=== PATIENT | male | born 1950 | race African-American/Black ===

== ENCOUNTER 2021-11-25 14:39 | Inpatient (IN) | payer MEDICARE ==
[2021-11-25 15:30] LABS: #Eosinphils 0.1 10x3/uL (0.0-0.5); #Monocytes 0.5 10x3/uL (0.0-1.1); #Neutrophils 5.5 10x3/uL (1.5-8.4); %Basophils 0.3 % (0.0-2.0); %Eosinophils 0.9 % (0.0-6.0); %Lymphocytes 7.3 % (18.0-47.0); %Monocytes 7.3 % (0.0-10.0); %Neutrophils 83.9 % (40.0-75.0); Hemoglobin 10.4 g/dL (13.5-17.5); Mean Corpuscular HGB CONC 32.8 g/dL (32.0-36.0); Mean Corpuscular Hemoglobin 29.1 pg (27.0-33.0); Mean Corpuscular Volume 88.8 fl (81.2-95.1); Mean Platelet Volume 10.1 fl (7.4-10.4); Platelet Count 229 10x3/uL (150-450); RBC Distribution Width 17.8 % (11.5-14.5); Red Blood Cell (RBC) Count 3.57 10x6/uL (4.32-5.72); White Blood Cell (WBC) Count 6.6 10x3/uL (3.5-10.5)
[2021-11-25 15:42] LABS: ALT (SGPT) 15 U/L (8-55); AST (SGOT) 22 U/L (5-34); Albumin 3.3 g/dL (3.4-4.8); Alkaline Phosphatase 224 U/L (40-110); Anion Gap 14 mmol/L (10-20); BUN (Urea Nitrogen) 15 mg/dL (8.4-25.7); Bilirubin, Total 2.4 mg/dL (0.2-1.2); CK (CPK) 283 U/L (30-200); Calc. Creatinine Clearance 0 mL/min (70-130); Calcium 8.7 mg/dL (7.8-10.44); Carbon Dioxide 25 mmol/L (23-31); Chloride 102 mmol/L (98-107); Globulin 3.3 g/dL (2.4-3.5); Glucose 174 mg/dL (83-110); Potassium 3.1 mmol/L (3.5-5.1); Protein, Total 6.6 g/dL (5.8-8.1); Sodium 138 mmol/L (136-145)
[2021-11-25] MEDS ORDERED: Cefepime 2 GM VIAL ONE (17:04)
[2021-11-25 17:13] LABS: SARS-CoV-2 NAA Rapid Test Not Detected (NotDetected)
[2021-11-25] MEDS ORDERED: Vancomycin 1.5 GRAM/300 ML BAG 1.5 GM in Premix Bag 1 BAG IVPB SCH (17:15)
[2021-11-25] MEDS ORDERED: Acetaminophen 650 MG Suppository PR PRN (17:41)
[2021-11-25] MEDS ORDERED: Ondansetron ODT 4 MG TAB PO PRN (17:41)
[2021-11-25] MEDS ORDERED: Ondansetron PF 4 MG/2 ML Vial IVP PRN (17:41)
[2021-11-25] MEDS ORDERED: Acetaminophen 325 MG TAB PO PRN (17:41)
[2021-11-25 18:24] LABS: Lactic Acid 1.6 mmol/L (0.5-2.2)
[2021-11-25 18:42] LABS: Cardiac Risk 2.6 (Less than 4.5); Cholesterol 131 mg/dl (< 200 Desired); HDL Cholesterol 51 mg/dL (>60 Neg Risk); LDL Cholesterol, Calculated 66 mg/dL; Magnesium 2.1 mg/dL (1.6-2.6); Triglycerides 70 mg/dL (Less than 150)
[2021-11-25 19:07] LABS: CKMB 2.9 ng/mL (0-6.6)
[2021-11-25] MEDS ORDERED: Promethazine HCl 25 MG/ML VIAL ONE (23:02)
[2021-11-25] MEDS ORDERED: Ketorolac Tromethamine 30 MG/ML VIAL ONE (23:02)
[2021-11-26 00:48] VITALS: BMI 23.6
[2021-11-26] MEDS ORDERED: Potassium Chloride 20 MEQ TAB PO SCH (01:00)
[2021-11-26] MEDS: Sodium Chloride 0.9% 1,000 ML IV SCH ×2 (01:17→09:12)
[2021-11-26 05:31] LABS: #Eosinphils 0.1 10x3/uL (0.0-0.5); #Monocytes 0.6 10x3/uL (0.0-1.1); #Neutrophils 4.8 10x3/uL (1.5-8.4); %Basophils 0.5 % (0.0-2.0); %Eosinophils 1.2 % (0.0-6.0); %Lymphocytes 8.2 % (18.0-47.0); %Monocytes 9.3 % (0.0-10.0); %Neutrophils 80.5 % (40.0-75.0); Hemoglobin 10.5 g/dL (13.5-17.5); Mean Corpuscular HGB CONC 33.8 g/dL (32.0-36.0); Mean Corpuscular Hemoglobin 29.7 pg (27.0-33.0); Mean Corpuscular Volume 87.9 fl (81.2-95.1); Platelet Count 198 10x3/uL (150-450); RBC Distribution Width 17.9 % (11.5-14.5); Red Blood Cell (RBC) Count 3.54 10x6/uL (4.32-5.72)
[2021-11-26 05:49] LABS: ALT (SGPT) 13 U/L (8-55); AST (SGOT) 19 U/L (5-34); Alkaline Phosphatase 195 U/L (40-110); Anion Gap 13 mmol/L (10-20); BUN (Urea Nitrogen) 14 mg/dL (8.4-25.7); Calc. Creatinine Clearance 50 mL/min (70-130); Calcium 8.6 mg/dL (7.8-10.44); Carbon Dioxide 23 mmol/L (23-31); Chloride 104 mmol/L (98-107); Globulin 3.2 g/dL (2.4-3.5); Glucose 159 mg/dL (83-110); Protein, Total 6.2 g/dL (5.8-8.1); Sodium 137 mmol/L (136-145)
[2021-11-26] MEDS: Heparin 5,000 UNITS/ML VIAL SC SCH ×2 (09:13→20:19)
[2021-11-26 13:14] LABS: Hemoglobin A1c 6.7 % (4.0-6.0)
[2021-11-26] MEDS: Potassium Chloride 20 MEQ TAB PO SCH (18:07)
[2021-11-26] MEDS ORDERED: Electrolyte Replacement Protocol 1 EACH FS SCH (19:15)
[2021-11-26] MEDS: Atorvastatin Calcium 40 MG TAB PO SCH (20:19)
[2021-11-27 04:33] LABS: #Eosinphils 0.1 10x3/uL (0.0-0.5); #Monocytes 0.7 10x3/uL (0.0-1.1); %Basophils 0.6 % (0.0-2.0); %Eosinophils 0.8 % (0.0-6.0); %Lymphocytes 10.2 % (18.0-47.0); %Monocytes 10.3 % (0.0-10.0); %Neutrophils 77.5 % (40.0-75.0); Hemoglobin 10.3 g/dL (13.5-17.5); Mean Corpuscular Hemoglobin 29.5 pg (27.0-33.0); Mean Corpuscular Volume 86.8 fl (81.2-95.1); Mean Platelet Volume 10.2 fl (7.4-10.4); Platelet Count 205 10x3/uL (150-450); RBC Distribution Width 17.6 % (11.5-14.5); Red Blood Cell (RBC) Count 3.49 10x6/uL (4.32-5.72); White Blood Cell (WBC) Count 6.5 10x3/uL (3.5-10.5)
[2021-11-27 04:41] LABS: Phosphorus 2.6 mg/dL (2.3-4.7)
[2021-11-27 05:34] LABS: ALT (SGPT) 17 U/L (8-55); AST (SGOT) 26 U/L (5-34); Alkaline Phosphatase 214 U/L (40-110); Anion Gap 15 mmol/L (10-20); BUN (Urea Nitrogen) 14 mg/dL (8.4-25.7); Bilirubin, Total 2.8 mg/dL (0.2-1.2); Calc. Creatinine Clearance 49 mL/min (70-130); Calcium 8.3 mg/dL (7.8-10.44); Carbon Dioxide 21 mmol/L (23-31); Chloride 103 mmol/L (98-107); Globulin 3.1 g/dL (2.4-3.5); Glucose 162 mg/dL (83-110); Magnesium 2.1 mg/dL (1.6-2.6); Potassium 3.6 mmol/L (3.5-5.1); Protein, Total 6.1 g/dL (5.8-8.1); Sodium 135 mmol/L (136-145)
[2021-11-27] MEDS: Clopidogrel Bisulfate 75 MG TAB PO SCH (08:56)
[2021-11-27] MEDS: Potassium Chloride 20 MEQ TAB PO SCH (08:56)
[2021-11-27] MEDS: Heparin 5,000 UNITS/ML VIAL SC SCH ×2 (08:56→20:20)
[2021-11-27] MEDS: Aspirin 81 mg Enteric Coated Tablet PO SCH (08:57)
[2021-11-27] MEDS ORDERED: Lisinopril 2.5 MG TAB PO SCH (13:00)
[2021-11-27] MEDS ORDERED: Furosemide 40 MG/4 ML VIAL SLOW IVP SCH (13:00)
[2021-11-27] MEDS ORDERED: Carvedilol 6.25 MG TAB PO SCH (13:00)
[2021-11-27] MEDS: Carvedilol 6.25 MG TAB PO SCH (16:10)
[2021-11-27] MEDS: hydrALAZINE 25 MG TAB PO SCH ×2 (16:11→20:20)
[2021-11-27 19:11] LABS: Bilirubin Neg (Negative); Blood, Urine 10 (Negative); Clarity Slightly Cloudy (Clear); Glucose, Urine (Dipstick) Normal (Negative); Ketone, Urine Negative (Negative); Leukocyte 500 (Negative); Nitrite Negative (Negative); Protein, Urine (Dipstick) 30 mg/dl (Neg-Trace); Urobilinogen Normal mg/dL (Less than 2); pH, Urine 6.5 (5.0-9.0)
[2021-11-27 19:22] LABS: WBC/HPF Greater Than 50 HPF (0-3)
[2021-11-27 19:23] LABS: Bacteria/HPF 2+ HPF (None Seen); Mucous/LPF 1+ LPF (<2+)
[2021-11-27] MEDS: Atorvastatin Calcium 40 MG TAB PO SCH (20:20)
[2021-11-28 04:10] LABS: #Eosinphils 0.1 10x3/uL (0.0-0.5); #Monocytes 0.4 10x3/uL (0.0-1.1); #Neutrophils 3.7 10x3/uL (1.5-8.4); %Basophils 0.8 % (0.0-2.0); %Eosinophils 2.3 % (0.0-6.0); %Monocytes 8.1 % (0.0-10.0); %Neutrophils 76.4 % (40.0-75.0); Hemoglobin 9.9 g/dL (13.5-17.5); Mean Corpuscular HGB CONC 34.1 g/dL (32.0-36.0); Mean Corpuscular Hemoglobin 29.5 pg (27.0-33.0); Mean Corpuscular Volume 86.3 fl (81.2-95.1); Mean Platelet Volume 9.8 fl (7.4-10.4); Platelet Count 183 10x3/uL (150-450); RBC Distribution Width 17.7 % (11.5-14.5); Red Blood Cell (RBC) Count 3.36 10x6/uL (4.32-5.72); White Blood Cell (WBC) Count 4.8 10x3/uL (3.5-10.5)
[2021-11-28 04:34] LABS: ALT (SGPT) 13 U/L (8-55); AST (SGOT) 16 U/L (5-34); Albumin 2.7 g/dL (3.4-4.8); Alkaline Phosphatase 234 U/L (40-110); Anion Gap 13 mmol/L (10-20); BUN (Urea Nitrogen) 16 mg/dL (8.4-25.7); Bilirubin, Direct 1.9 mg/dL (0.1-0.3); Bilirubin, Total 2.7 mg/dL (0.2-1.2); Bilirubin, Total 2.8 mg/dL (0.2-1.2); Calc. Creatinine Clearance 50 mL/min (70-130); Calcium 8.1 mg/dL (7.8-10.44); Carbon Dioxide 22 mmol/L (23-31); Chloride 103 mmol/L (98-107); Globulin 2.9 g/dL (2.4-3.5); Glucose 138 mg/dL (83-110); Potassium 3.7 mmol/L (3.5-5.1); Protein, Total 5.6 g/dL (5.8-8.1); Sodium 134 mmol/L (136-145)
[2021-11-28] MEDS: Furosemide 40 MG/4 ML VIAL SLOW IVP SCH ×2 (06:43→14:33)
[2021-11-28] MEDS: Aspirin 81 mg Enteric Coated Tablet PO SCH (08:52)
[2021-11-28] MEDS: Clopidogrel Bisulfate 75 MG TAB PO SCH (08:52)
[2021-11-28] MEDS: Carvedilol 6.25 MG TAB PO SCH ×2 (08:52→17:05)
[2021-11-28] MEDS: Heparin 5,000 UNITS/ML VIAL SC SCH ×2 (08:53→21:30)
[2021-11-28] MEDS: hydrALAZINE 25 MG TAB PO SCH ×3 (08:53→21:29)
[2021-11-28] MEDS ORDERED: Lisinopril 2.5 MG TAB PO SCH (09:00)
[2021-11-28] MEDS: Atorvastatin Calcium 40 MG TAB PO SCH (21:30)
[2021-11-29 04:05] LABS: #Eosinphils 0.1 10x3/uL (0.0-0.5); #Monocytes 0.4 10x3/uL (0.0-1.1); #Neutrophils 3.6 10x3/uL (1.5-8.4); %Basophils 0.6 % (0.0-2.0); %Eosinophils 2.5 % (0.0-6.0); %Lymphocytes 12.5 % (18.0-47.0); %Monocytes 7.6 % (0.0-10.0); %Neutrophils 76.6 % (40.0-75.0); Hemoglobin 9.8 g/dL (13.5-17.5); Mean Corpuscular HGB CONC 33.8 g/dL (32.0-36.0); Mean Corpuscular Hemoglobin 29.4 pg (27.0-33.0); Mean Corpuscular Volume 87.1 fl (81.2-95.1); Mean Platelet Volume 10.4 fl (7.4-10.4); Platelet Count 177 10x3/uL (150-450); RBC Distribution Width 17.6 % (11.5-14.5); Red Blood Cell (RBC) Count 3.33 10x6/uL (4.32-5.72); White Blood Cell (WBC) Count 4.7 10x3/uL (3.5-10.5)
[2021-11-29 04:35] LABS: ALT (SGPT) 12 U/L (8-55); AST (SGOT) 14 U/L (5-34); Albumin 2.7 g/dL (3.4-4.8); Alkaline Phosphatase 232 U/L (40-110); Anion Gap 12 mmol/L (10-20); BUN (Urea Nitrogen) 16 mg/dL (8.4-25.7); Bilirubin, Total 1.9 mg/dL (0.2-1.2); Calc. Creatinine Clearance 47 mL/min (70-130); Calcium 8.2 mg/dL (7.8-10.44); Carbon Dioxide 23 mmol/L (23-31); Chloride 101 mmol/L (98-107); Globulin 3.1 g/dL (2.4-3.5); Glucose 149 mg/dL (83-110); Potassium 3.2 mmol/L (3.5-5.1); Protein, Total 5.8 g/dL (5.8-8.1); Sodium 133 mmol/L (136-145)
[2021-11-29] MEDS ORDERED: Potassium Chloride 20 MEQ TAB PO SCH (04:45)
[2021-11-29] MEDS: Furosemide 40 MG/4 ML VIAL SLOW IVP SCH ×2 (07:42→15:49)
[2021-11-29] MEDS: Aspirin 81 mg Enteric Coated Tablet PO SCH (11:08)
[2021-11-29] MEDS: Lisinopril 5 MG TAB PO SCH (11:09)
[2021-11-29] MEDS: Heparin 5,000 UNITS/ML VIAL SC SCH ×2 (11:09→22:12)
[2021-11-29] MEDS: hydrALAZINE 25 MG TAB PO SCH ×3 (11:09→22:11)
[2021-11-29] MEDS: Clopidogrel Bisulfate 75 MG TAB PO SCH (11:09)
[2021-11-29] MEDS: Carvedilol 6.25 MG TAB PO SCH ×2 (16:03→18:15)
[2021-11-29] MEDS: Atorvastatin Calcium 40 MG TAB PO SCH (22:12)
[2021-11-30 05:16] LABS: #Eosinphils 0.1 10x3/uL (0.0-0.5); #Monocytes 0.4 10x3/uL (0.0-1.1); #Neutrophils 3.5 10x3/uL (1.5-8.4); %Basophils 0.7 % (0.0-2.0); %Eosinophils 2.4 % (0.0-6.0); %Lymphocytes 11.5 % (18.0-47.0); %Monocytes 9.6 % (0.0-10.0); %Neutrophils 75.4 % (40.0-75.0); Hemoglobin 9.9 g/dL (13.5-17.5); Mean Corpuscular HGB CONC 33.2 g/dL (32.0-36.0); Mean Corpuscular Hemoglobin 28.9 pg (27.0-33.0); Mean Corpuscular Volume 86.9 fl (81.2-95.1); Mean Platelet Volume 9.6 fl (7.4-10.4); Platelet Count 180 10x3/uL (150-450); RBC Distribution Width 17.9 % (11.5-14.5); Red Blood Cell (RBC) Count 3.43 10x6/uL (4.32-5.72); White Blood Cell (WBC) Count 4.6 10x3/uL (3.5-10.5)
[2021-11-30] MEDS ORDERED: Potassium Chloride 20 MEQ TAB PO SCH ×2 (05:45→10:00)
[2021-11-30 05:59] LABS: Anion Gap 14 mmol/L (10-20); BUN (Urea Nitrogen) 15 mg/dL (8.4-25.7); Calc. Creatinine Clearance 46 mL/min (70-130); Calcium 8.2 mg/dL (7.8-10.44); Carbon Dioxide 23 mmol/L (23-31); Chloride 100 mmol/L (98-107); Glucose 154 mg/dL (83-110); Potassium 3.5 mmol/L (3.5-5.1); Sodium 133 mmol/L (136-145)
[2021-11-30] MEDS: Furosemide 40 MG/4 ML VIAL SLOW IVP SCH ×2 (06:06→14:00)
[2021-11-30] MEDS: hydrALAZINE 25 MG TAB PO SCH ×3 (08:00→22:02)
[2021-11-30] MEDS: Carvedilol 6.25 MG TAB PO SCH ×2 (08:27→21:13)
[2021-11-30] MEDS: Lisinopril 5 MG TAB PO SCH (09:00)
[2021-11-30] MEDS: Heparin 5,000 UNITS/ML VIAL SC SCH ×2 (09:00→22:02)
[2021-11-30] MEDS: Clopidogrel Bisulfate 75 MG TAB PO SCH (09:00)
[2021-11-30] MEDS: Aspirin 81 mg Enteric Coated Tablet PO SCH (09:00)
[2021-11-30] MEDS: Atorvastatin Calcium 40 MG TAB PO SCH (22:02)
[2021-12-01] MEDS: Furosemide 40 MG/4 ML VIAL SLOW IVP SCH ×2 (03:33→18:11)
[2021-12-01] MEDS ORDERED: Nitroglycerin 50 MG/250 ML BOT 0 ML ONE (09:16)
[2021-12-01] MEDS ORDERED: Heparin 10,000 UNITS/ 10 ML VIAL ONE (09:16)
[2021-12-01] MEDS ORDERED: Lidocaine 1% (PF) 30 ML VIAL ONE (09:16)
[2021-12-01] MEDS ORDERED: Fentanyl 100 MCG/2 ML VIAL ONE (09:17)
[2021-12-01] MEDS ORDERED: Adenosine 6 MG/2 ML VIAL ONE (09:17)
[2021-12-01] MEDS ORDERED: Midazolam HCl 5 mg/5 ml Vial ONE (09:18)
[2021-12-01] MEDS: Carvedilol 6.25 MG TAB PO SCH ×2 (09:34→18:11)
[2021-12-01] MEDS: Lisinopril 5 MG TAB PO SCH (09:48)
[2021-12-01] MEDS: hydrALAZINE 25 MG TAB PO SCH ×3 (09:48→21:58)
[2021-12-01] MEDS: Clopidogrel Bisulfate 75 MG TAB PO SCH (09:48)
[2021-12-01] MEDS: Aspirin 81 mg Enteric Coated Tablet PO SCH (09:48)
[2021-12-01] MEDS ORDERED: Sodium Chloride 0.9% 1,000 ML IV SCH (11:30)
[2021-12-01] MEDS: Atorvastatin Calcium 40 MG TAB PO SCH (21:59)
[2021-12-02 04:11] LABS: #Eosinphils 0.1 10x3/uL (0.0-0.5); #Monocytes 0.5 10x3/uL (0.0-1.1); #Neutrophils 3.3 10x3/uL (1.5-8.4); %Basophils 0.7 % (0.0-2.0); %Eosinophils 2.5 % (0.0-6.0); %Lymphocytes 10.9 % (18.0-47.0); %Monocytes 10.7 % (0.0-10.0); Hemoglobin 9.9 g/dL (13.5-17.5); Mean Corpuscular HGB CONC 32.6 g/dL (32.0-36.0); Mean Corpuscular Hemoglobin 29.3 pg (27.0-33.0); Mean Corpuscular Volume 89.9 fl (81.2-95.1); Mean Platelet Volume 10.3 fl (7.4-10.4); Platelet Count 168 10x3/uL (150-450); RBC Distribution Width 18.4 % (11.5-14.5); Red Blood Cell (RBC) Count 3.38 10x6/uL (4.32-5.72); White Blood Cell (WBC) Count 4.4 10x3/uL (3.5-10.5)
[2021-12-02 04:12] LABS: ALT (SGPT) 10 U/L (8-55); AST (SGOT) 15 U/L (5-34); Albumin 2.6 g/dL (3.4-4.8); Alkaline Phosphatase 239 U/L (40-110); Anion Gap 13 mmol/L (10-20); BUN (Urea Nitrogen) 13 mg/dL (8.4-25.7); Bilirubin, Total 1.5 mg/dL (0.2-1.2); Calc. Creatinine Clearance 47 mL/min (70-130); Calcium 8.1 mg/dL (7.8-10.44); Carbon Dioxide 23 mmol/L (23-31); Chloride 102 mmol/L (98-107); Globulin 3.1 g/dL (2.4-3.5); Glucose 144 mg/dL (83-110); Potassium 3.7 mmol/L (3.5-5.1); Protein, Total 5.7 g/dL (5.8-8.1); Sodium 134 mmol/L (136-145)
[2021-12-02] MEDS: Furosemide 40 MG/4 ML VIAL SLOW IVP SCH ×2 (06:18→17:22)
[2021-12-02] MEDS: Aspirin 81 mg Enteric Coated Tablet PO SCH (10:01)
[2021-12-02] MEDS: Carvedilol 6.25 MG TAB PO SCH ×2 (10:01→17:22)
[2021-12-02] MEDS: hydrALAZINE 25 MG TAB PO SCH ×3 (10:02→20:39)
[2021-12-02] MEDS: Lisinopril 5 MG TAB PO SCH (10:02)
[2021-12-02] MEDS: Clopidogrel Bisulfate 75 MG TAB PO SCH (10:02)
[2021-12-02] MEDS ORDERED: Ketamine 50 MG/ML (10ML VIAL) ONE (10:35)
[2021-12-02] MEDS ORDERED: Acetaminophen 500 MG TAB PO PRN (10:36)
[2021-12-02] MEDS ORDERED: PROPOFOL 20 ML ONE (10:36)
[2021-12-02] MEDS ORDERED: traMADol HCl 50 MG TAB PO PRN (10:36)
[2021-12-02] MEDS ORDERED: Fentanyl 100 MCG/2 ML VIAL ONE (10:36)
[2021-12-02] MEDS ORDERED: ceFAZolin 2 GM/Dextrose 50 ML 2 GM in Premix Bag 1 BAG IVPB SCH (10:45)
[2021-12-02] MEDS ORDERED: CEFAZOLIN 1 GM VIAL ONE (11:12)
[2021-12-02 18:23] LABS: SARS-CoV-2 PCR by NAA Not Detected (NotDetected)
[2021-12-02] MEDS: Atorvastatin Calcium 40 MG TAB PO SCH (20:39)
[2021-12-02] MEDS: Sulfameth/Trimethoprim DS 800-160mg TAB PO SCH (20:40)
[2021-12-03] MEDS: Furosemide 40 MG/4 ML VIAL SLOW IVP SCH ×2 (06:25→14:40)
[2021-12-03] MEDS: Aspirin 81 mg Enteric Coated Tablet PO SCH (08:52)
[2021-12-03] MEDS: Sulfameth/Trimethoprim DS 800-160mg TAB PO SCH ×2 (08:52→21:43)
[2021-12-03] MEDS: Carvedilol 6.25 MG TAB PO SCH ×2 (08:54→17:48)
[2021-12-03] MEDS: hydrALAZINE 25 MG TAB PO SCH ×3 (08:54→21:43)
[2021-12-03] MEDS: Lisinopril 5 MG TAB PO SCH (08:55)
[2021-12-03] MEDS: Clopidogrel Bisulfate 75 MG TAB PO SCH (09:05)
[2021-12-03] MEDS: Atorvastatin Calcium 40 MG TAB PO SCH (21:43)
[2021-12-04 04:00] LABS: #Eosinphils 0.1 10x3/uL (0.0-0.5); #Monocytes 0.5 10x3/uL (0.0-1.1); #Neutrophils 4.7 10x3/uL (1.5-8.4); %Basophils 0.5 % (0.0-2.0); %Eosinophils 1.2 % (0.0-6.0); %Lymphocytes 8.4 % (18.0-47.0); %Monocytes 9.3 % (0.0-10.0); %Neutrophils 80.3 % (40.0-75.0); Hemoglobin 10.1 g/dL (13.5-17.5); Mean Corpuscular HGB CONC 34.2 g/dL (32.0-36.0); Mean Corpuscular Hemoglobin 29.4 pg (27.0-33.0); Mean Corpuscular Volume 85.8 fl (81.2-95.1); Mean Platelet Volume 9.6 fl (7.4-10.4); Platelet Count 161 10x3/uL (150-450); RBC Distribution Width 17.4 % (11.5-14.5); Red Blood Cell (RBC) Count 3.44 10x6/uL (4.32-5.72); White Blood Cell (WBC) Count 5.8 10x3/uL (3.5-10.5)
[2021-12-04 04:21] LABS: ALT (SGPT) Less than 6 U/L (8-55); AST (SGOT) 13 U/L (5-34); Albumin 2.5 g/dL (3.4-4.8); Alkaline Phosphatase 217 U/L (40-110); Anion Gap 13 mmol/L (10-20); BUN (Urea Nitrogen) 14 mg/dL (8.4-25.7); Bilirubin, Total 1.3 mg/dL (0.2-1.2); Calc. Creatinine Clearance 42 mL/min (70-130); Calcium 8.2 mg/dL (7.8-10.44); Carbon Dioxide 26 mmol/L (23-31); Chloride 97 mmol/L (98-107); Glucose 113 mg/dL (83-110); Magnesium 1.8 mg/dL (1.6-2.6); Phosphorus 3.2 mg/dL (2.3-4.7); Potassium 3.5 mmol/L (3.5-5.1); Protein, Total 5.5 g/dL (5.8-8.1); Sodium 132 mmol/L (136-145)
[2021-12-04] MEDS ORDERED: Magnesium 2 GM/50 ML 2 GM in Premix Bag 1 BAG IVPB SCH (05:45)
[2021-12-04] MEDS ORDERED: Potassium Chloride 20 MEQ TAB PO SCH (05:45)
[2021-12-04] MEDS: Furosemide 40 MG/4 ML VIAL SLOW IVP SCH ×2 (06:45→15:09)
[2021-12-04] MEDS: Clopidogrel Bisulfate 75 MG TAB PO SCH (09:09)
[2021-12-04] MEDS: Lisinopril 5 MG TAB PO SCH (09:09)
[2021-12-04] MEDS: Carvedilol 6.25 MG TAB PO SCH (09:09)
[2021-12-04] MEDS: hydrALAZINE 25 MG TAB PO SCH ×3 (09:09→21:28)
[2021-12-04] MEDS: Sulfameth/Trimethoprim DS 800-160mg TAB PO SCH ×2 (09:09→21:28)
[2021-12-04] MEDS: Aspirin 81 mg Enteric Coated Tablet PO SCH (09:09)
[2021-12-04] MEDS: Atorvastatin Calcium 40 MG TAB PO SCH (21:28)
[2021-12-05] MEDS: Furosemide 40 MG/4 ML VIAL SLOW IVP SCH ×2 (06:37→14:17)
[2021-12-05] MEDS: hydrALAZINE 25 MG TAB PO SCH ×3 (09:44→21:10)
[2021-12-05] MEDS: Sulfameth/Trimethoprim DS 800-160mg TAB PO SCH ×2 (09:44→21:10)
[2021-12-05] MEDS: Clopidogrel Bisulfate 75 MG TAB PO SCH (09:44)
[2021-12-05] MEDS: Lisinopril 5 MG TAB PO SCH (09:44)
[2021-12-05] MEDS: Aspirin 81 mg Enteric Coated Tablet PO SCH (09:44)
[2021-12-05] MEDS: Atorvastatin Calcium 40 MG TAB PO SCH (21:10)
[2021-12-06] MEDS: Furosemide 40 MG/4 ML VIAL SLOW IVP SCH ×2 (06:23→14:45)
[2021-12-06] MEDS: Aspirin 81 mg Enteric Coated Tablet PO SCH (09:01)
[2021-12-06] MEDS: Clopidogrel Bisulfate 75 MG TAB PO SCH (09:01)
[2021-12-06] MEDS: Sulfameth/Trimethoprim DS 800-160mg TAB PO SCH (09:01)
[2021-12-06] MEDS: hydrALAZINE 25 MG TAB PO SCH ×3 (09:02→20:33)
[2021-12-06] MEDS: Lisinopril 5 MG TAB PO SCH (09:02)
[2021-12-06 09:32] LABS: Anion Gap 12 mmol/L (10-20); BUN (Urea Nitrogen) 25 mg/dL (8.4-25.7); Calc. Creatinine Clearance 32 mL/min (70-130); Calcium 8.2 mg/dL (7.8-10.44); Carbon Dioxide 31 mmol/L (23-31); Chloride 95 mmol/L (98-107); Glucose 107 mg/dL (83-110); Potassium 3.8 mmol/L (3.5-5.1); Sodium 134 mmol/L (136-145)
[2021-12-06] MEDS: Carvedilol 6.25 MG TAB PO SCH (17:51)
[2021-12-06] MEDS: Atorvastatin Calcium 40 MG TAB PO SCH (20:33)
[2021-12-07 04:18] LABS: #Eosinphils 0.1 10x3/uL (0.0-0.5); #Monocytes 0.4 10x3/uL (0.0-1.1); #Neutrophils 3.7 10x3/uL (1.5-8.4); %Basophils 0.8 % (0.0-2.0); %Eosinophils 1.9 % (0.0-6.0); %Lymphocytes 11.2 % (18.0-47.0); %Monocytes 8.4 % (0.0-10.0); %Neutrophils 77.5 % (40.0-75.0); Hemoglobin 10.3 g/dL (13.5-17.5); Mean Corpuscular HGB CONC 34.4 g/dL (32.0-36.0); Mean Corpuscular Volume 84.2 fl (81.2-95.1); Platelet Count 188 10x3/uL (150-450); RBC Distribution Width 16.8 % (11.5-14.5); Red Blood Cell (RBC) Count 3.55 10x6/uL (4.32-5.72); White Blood Cell (WBC) Count 4.7 10x3/uL (3.5-10.5)
[2021-12-07 04:32] LABS: Anion Gap 11 mmol/L (10-20); BUN (Urea Nitrogen) 24 mg/dL (8.4-25.7); Calc. Creatinine Clearance 33 mL/min (70-130); Calcium 8.2 mg/dL (7.8-10.44); Carbon Dioxide 32 mmol/L (23-31); Chloride 95 mmol/L (98-107); Glucose 109 mg/dL (83-110); Potassium 3.6 mmol/L (3.5-5.1); Sodium 134 mmol/L (136-145)
[2021-12-07] MEDS: hydrALAZINE 25 MG TAB PO SCH ×4 (09:48→20:59)
[2021-12-07] MEDS: Aspirin 81 mg Enteric Coated Tablet PO SCH (10:15)
[2021-12-07] MEDS: Carvedilol 6.25 MG TAB PO SCH (10:15)
[2021-12-07] MEDS: Clopidogrel Bisulfate 75 MG TAB PO SCH (10:15)
[2021-12-07] MEDS: Atorvastatin Calcium 40 MG TAB PO SCH (20:59)
[2021-12-07] MEDS: Lantus 1000 UNITS/10 ML VIAL SC SCH (21:04)
[2021-12-08] MEDS: Aspirin 81 mg Enteric Coated Tablet PO SCH (08:42)
[2021-12-08] MEDS: hydrALAZINE 25 MG TAB PO SCH ×3 (08:43→21:54)
[2021-12-08] MEDS: Clopidogrel Bisulfate 75 MG TAB PO SCH (08:43)
[2021-12-08] MEDS ORDERED: Mag-Al 1200 mg/1200 mg/30 ML UDCUP PO PRN (11:26)
[2021-12-08] MEDS: Lantus 1000 UNITS/10 ML VIAL SC SCH (21:54)
[2021-12-08] MEDS: Atorvastatin Calcium 40 MG TAB PO SCH (21:54)
[2021-12-09 08:41] VITALS: BP 130/65; TEMP 98.1
[2021-12-09] MEDS: hydrALAZINE 25 MG TAB PO SCH (09:16)
[2021-12-09] MEDS: Clopidogrel Bisulfate 75 MG TAB PO SCH (09:17)
[2021-12-09] MEDS: Lisinopril 5 MG TAB PO SCH (09:17)
[2021-12-09] MEDS: Aspirin 81 mg Enteric Coated Tablet PO SCH (09:17)
[2021-12-09 16:49] LABS: SARS-CoV-2 PCR by NAA Not Detected (NotDetected)
== END 2021-12-09 11:00 | disposition home or self-care (01) | DRG 252 ==
LOC: CSHERS 14:39 → CSHTELE 17:40 → UNDOADMIN 23:49 → CSHTELE 23:49
PROVIDERS: ADMIT Family Medicine; ATTEND Hospitalist
PROC: 047L3DZ Dilation of Left Femoral Artery with Intraluminal Device, Percutaneous Approach (ICD-10-PCS; principal; 2021-12-01)
PROC: 047Q3ZZ Dilation of Left Anterior Tibial Artery, Percutaneous Approach (ICD-10-PCS; 2021-12-01)
PROC: B4101ZZ Fluoroscopy of Abdominal Aorta using Low Osmolar Contrast (ICD-10-PCS; 2021-12-01)
PROC: B41G1ZZ Fluoroscopy of Left Lower Extremity Arteries using Low Osmolar Contrast (ICD-10-PCS; 2021-12-01)
PROC: 0Y6S0Z1 Detachment at Left 2nd Toe, High, Open Approach (ICD-10-PCS; 2021-12-02)
DX: E11.52 Type 2 diabetes mellitus with diabetic peripheral angiopathy with gangrene (principal); I50.23 Acute on chronic systolic (congestive) heart failure; N17.9 Acute kidney failure, unspecified; I13.0 Hypertensive heart and chronic kidney disease with heart failure and stage 1 through stage 4 chronic kidney disease, or unspecified chronic kidney disease; R18.8 Other ascites; I96 Gangrene, not elsewhere classified; I42.8 Other cardiomyopathies; M86.8X7 Other osteomyelitis, ankle and foot; E11.40 Type 2 diabetes mellitus with diabetic neuropathy, unspecified; E87.6 Hypokalemia; E11.621 Type 2 diabetes mellitus with foot ulcer; L97.529 Non-pressure chronic ulcer of other part of left foot with unspecified severity; L97.519 Non-pressure chronic ulcer of other part of right foot with unspecified severity; E11.22 Type 2 diabetes mellitus with diabetic chronic kidney disease; N18.9 Chronic kidney disease, unspecified; F10.11 Alcohol abuse, in remission; I08.1 Rheumatic disorders of both mitral and tricuspid valves; N28.9 Disorder of kidney and ureter, unspecified; E78.2 Mixed hyperlipidemia; T25.022A Burn of unspecified degree of left foot, initial encounter; R00.1 Bradycardia, unspecified; T25.021A Burn of unspecified degree of right foot, initial encounter; S92.415A Nondisplaced fracture of proximal phalanx of left great toe, initial encounter for closed fracture; W19.XXXA Unspecified fall, initial encounter; I70.1 Atherosclerosis of renal artery; F03.90 Unspecified dementia, unspecified severity, without behavioral disturbance, psychotic disturbance, mood disturbance, and anxiety; I87.8 Other specified disorders of veins; I25.10 Atherosclerotic heart disease of native coronary artery without angina pectoris; I70.203 Unspecified atherosclerosis of native arteries of extremities, bilateral legs; E11.69 Type 2 diabetes mellitus with other specified complication; Z20.822 Contact with and (suspected) exposure to COVID-19; Z87.891 Personal history of nicotine dependence; Z85.46 Personal history of malignant neoplasm of prostate; Z91.14 Patient's other noncompliance with medication regimen
CPT/HCPCS: 36415; 36416; 37226; 37230; 70551; 71045; 75625; 75716; 76770; 80048; 80053; 80061; 81001; 82140; 82247; 82550; 82553; 82977; 83036; 83605; 83735; 83880; 84100; 84443; 84484; 85025; 87040; 88305; 88311; 93005; 93010; 93306; 93923; 94760; 96374; 96375; 99152; 99153; C1725; C1760; C1874; C1876; J0153; J0690; J0692; J1644; J1815; J1885; J1940; J2001; J2250; J2550; J2704; J3010; J3370; J3475; J7050; U0002; U0003; U0005

== ENCOUNTER 2022-02-01 08:39 | Outpatient (CLI) | payer MEDICARE | END 2022-02-01 08:40 | disposition home or self-care (01) | LOC: CSHWCC 08:39 | PROVIDERS: ATTEND Nurse Practitioner Family | DX: L89.322 Pressure ulcer of left buttock, stage 2 (principal); L89.312 Pressure ulcer of right buttock, stage 2; L89.152 Pressure ulcer of sacral region, stage 2; S81.002D Unspecified open wound, left knee, subsequent encounter; S91.301D Unspecified open wound, right foot, subsequent encounter; S91.101D Unspecified open wound of right great toe without damage to nail, subsequent encounter | CPT/HCPCS: 97139; G0463; 99204 ==

== ENCOUNTER 2022-02-23 15:45 | Inpatient (IN) | payer MEDICARE ==
[2022-02-23 16:43] LABS: Bilirubin Neg (Negative); Blood, Urine 250 (Negative); Clarity Cloudy (Clear); Glucose, Urine (Dipstick) >=1000 mg/dL (Negative); Ketone, Urine Negative (Negative); Leukocyte 500 (Negative); Nitrite Positive (Negative); Protein, Urine (Dipstick) 100 mg/dl (Neg-Trace)
[2022-02-23] MEDS ORDERED: cefTRIAXone\\ROCEPHIN 1 GM VIAL ONE (16:47)
[2022-02-23 16:51] LABS: Bacteria/HPF 4+ HPF (None Seen); Squamous Epithelial 0-3 HPF (0-3); WBC/HPF Greater Than 50 HPF (0-3)
[2022-02-23 16:56] LABS: #Monocytes 0.7 10x3/uL (0.0-1.1); #Neutrophils 15.9 10x3/uL (1.5-8.4); %Basophils 0.2 % (0.0-2.0); %Eosinophils 0.2 % (0.0-6.0); %Lymphocytes 2.6 % (18.0-47.0); %Monocytes 4.1 % (0.0-10.0); %Neutrophils 92.1 % (40.0-75.0); Hemoglobin 9.3 g/dL (13.5-17.5); Mean Corpuscular HGB CONC 32.7 g/dL (32.0-36.0); Mean Corpuscular Volume 82.3 fl (81.2-95.1); Mean Platelet Volume 9.9 fl (7.4-10.4); Platelet Count 437 10x3/uL (150-450); Red Blood Cell (RBC) Count 3.45 10x6/uL (4.32-5.72); White Blood Cell (WBC) Count 17.3 10x3/uL (3.5-10.5)
[2022-02-23 17:04] LABS: ALT (SGPT) 19 U/L (8-55); AST (SGOT) 54 U/L (5-34); Albumin 2.9 g/dL (3.4-4.8); Alkaline Phosphatase 267 U/L (40-110); Anion Gap 13 mmol/L (10-20); BUN (Urea Nitrogen) 34 mg/dL (8.4-25.7); Bilirubin, Total 1.7 mg/dL (0.2-1.2); Calc. Creatinine Clearance 0 mL/min (70-130); Calcium 9.3 mg/dL (7.8-10.44); Carbon Dioxide 24 mmol/L (23-31); Chloride 98 mmol/L (98-107); Globulin 4.7 g/dL (2.4-3.5); Glucose 198 mg/dL (83-110); Potassium 3.6 mmol/L (3.5-5.1); Protein, Total 7.6 g/dL (5.8-8.1); Sodium 131 mmol/L (136-145)
[2022-02-23] MEDS ORDERED: VANCOMYCIN 1.75 GM/350 ML BAG 1.75 GM in Premix Bag 1 BAG IVPB SCH ×2 (17:15→20:00)
[2022-02-23] MEDS ORDERED: Dextrose 50% Abboject 50 ML SYRINGE SLOW IVP PRN (20:48)
[2022-02-23] MEDS ORDERED: Guaifenesin DM 100-10/5 ML UDCUP PO PRN (20:48)
[2022-02-23] MEDS ORDERED: Calcium Carbonate 500 MG ChewTAB PO PRN (20:48)
[2022-02-23] MEDS ORDERED: Ondansetron PF 4 MG/2 ML Vial IVP PRN (20:48)
[2022-02-23] MEDS ORDERED: Dextrose 5% in Water 1,000 ML IV PRN (20:48)
[2022-02-23] MEDS ORDERED: Famotidine 20 MG TAB PO SCH (21:00)
[2022-02-23] MEDS: Atorvastatin Calcium 40 MG TAB PO SCH (21:25)
[2022-02-23] MEDS: hydrALAZINE 25 MG TAB PO SCH (21:26)
[2022-02-23] MEDS: Acetaminophen 325 MG TAB PO PRN (21:26)
[2022-02-23] MEDS: Triple Antibiotic Ointment 30 GM TUBE TOP SCH (21:27)
[2022-02-23] MEDS: HumaLOG 300 UNITS/3 ML VIAL SC PRN (21:30)
[2022-02-23 23:43] LABS: SARS-CoV-2 NAA Rapid Test Not Detected (NotDetected)
[2022-02-24 04:45] LABS: #Basophils 0.1 10x3/uL (0.0-0.2); #Eosinphils 0.1 10x3/uL (0.0-0.5); #Monocytes 0.8 10x3/uL (0.0-1.1); #Neutrophils 15.5 10x3/uL (1.5-8.4); %Basophils 0.4 % (0.0-2.0); %Eosinophils 0.6 % (0.0-6.0); %Lymphocytes 2.7 % (18.0-47.0); %Monocytes 4.4 % (0.0-10.0); %Neutrophils 91.1 % (40.0-75.0); Hemoglobin 8.8 g/dL (13.5-17.5); Mean Corpuscular HGB CONC 33.5 g/dL (32.0-36.0); Mean Corpuscular Hemoglobin 27.1 pg (27.0-33.0); Mean Corpuscular Volume 80.9 fl (81.2-95.1); Mean Platelet Volume 10.1 fl (7.4-10.4); Platelet Count 389 10x3/uL (150-450); Red Blood Cell (RBC) Count 3.25 10x6/uL (4.32-5.72)
[2022-02-24 04:52] LABS: ALT (SGPT) 19 U/L (8-55); AST (SGOT) 53 U/L (5-34); Albumin 2.3 g/dL (3.4-4.8); Alkaline Phosphatase 247 U/L (40-110); Anion Gap 14 mmol/L (10-20); BUN (Urea Nitrogen) 37 mg/dL (8.4-25.7); Bilirubin, Total 1.4 mg/dL (0.2-1.2); CK (CPK) 1606 U/L (30-200); Calc. Creatinine Clearance 41 mL/min (70-130); Calcium 8.7 mg/dL (7.8-10.44); Carbon Dioxide 20 mmol/L (23-31); Chloride 102 mmol/L (98-107); Globulin 3.9 g/dL (2.4-3.5); Glucose 109 mg/dL (83-110); Potassium 3.2 mmol/L (3.5-5.1); Protein, Total 6.2 g/dL (5.8-8.1); Sodium 133 mmol/L (136-145)
[2022-02-24] MEDS: Clopidogrel Bisulfate 75 MG TAB PO SCH (09:38)
[2022-02-24] MEDS: Lisinopril 20 MG TAB PO SCH (09:38)
[2022-02-24] MEDS: Famotidine 20 MG TAB PO SCH (09:38)
[2022-02-24] MEDS: hydrALAZINE 25 MG TAB PO SCH ×3 (09:38→21:49)
[2022-02-24] MEDS: Carvedilol 3.125 MG TAB PO SCH ×2 (09:38→15:17)
[2022-02-24] MEDS: Empagliflozin 10 MG TAB PO SCH (09:39)
[2022-02-24] MEDS: Triple Antibiotic Ointment 30 GM TUBE TOP SCH (09:39)
[2022-02-24] MEDS: Enoxaparin Sodium 40 MG/0.4 ML SYRINGE SC SCH (09:39)
[2022-02-24] MEDS: HumaLOG 300 UNITS/3 ML VIAL SC PRN ×2 (11:12→21:54)
[2022-02-24 12:34] LABS: Hemoglobin A1c 7.4 % (4.0-6.0)
[2022-02-24] MEDS ORDERED: cefTRIAXone\\ROCEPHIN 1 GM in Sodium Chloride 0.9% 100 ML IVPB SCH (17:00)
[2022-02-24] MEDS ORDERED: Lidocaine 2% Jelly 5 ML TUBE TOP PRN (18:45)
[2022-02-24] MEDS ORDERED: Lactated Ringer's 1,000 ML IV SCH (19:30)
[2022-02-24] MEDS ORDERED: Electrolyte Replacement Protocol 1 EACH FS PRN (19:30)
[2022-02-24] MEDS ORDERED: Potassium Chloride 20 MEQ TAB PO SCH (19:30)
[2022-02-24 19:55] LABS: Magnesium 2.4 mg/dL (1.6-2.6); Phosphorus 3.9 mg/dL (2.3-4.7)
[2022-02-24] MEDS ORDERED: Aspirin 81 mg Enteric Coated Tablet PO SCH (20:00)
[2022-02-24] MEDS: Vancomycin HCl 1 GM in Sodium Chloride 0.9% 250 ML 250 ML IVPB SCH (21:39)
[2022-02-24] MEDS: Atorvastatin Calcium 40 MG TAB PO SCH (21:50)
[2022-02-25 05:13] LABS: #Eosinphils 0.1 10x3/uL (0.0-0.5); #Monocytes 0.6 10x3/uL (0.0-1.1); #Neutrophils 14.1 10x3/uL (1.5-8.4); %Basophils 0.3 % (0.0-2.0); %Eosinophils 0.6 % (0.0-6.0); %Lymphocytes 3.2 % (18.0-47.0); %Monocytes 4.1 % (0.0-10.0); %Neutrophils 90.4 % (40.0-75.0); Hemoglobin 8.4 g/dL (13.5-17.5); Mean Corpuscular Hemoglobin 27.4 pg (27.0-33.0); Mean Corpuscular Volume 78.2 fl (81.2-95.1); Mean Platelet Volume 9.8 fl (7.4-10.4); Platelet Count 372 10x3/uL (150-450); RBC Distribution Width 16.4 % (11.5-14.5); Red Blood Cell (RBC) Count 3.07 10x6/uL (4.32-5.72); White Blood Cell (WBC) Count 15.6 10x3/uL (3.5-10.5)
[2022-02-25 05:55] LABS: ALT (SGPT) 17 U/L (8-55); AST (SGOT) 32 U/L (5-34); Albumin 2.2 g/dL (3.4-4.8); Alkaline Phosphatase 234 U/L (40-110); Anion Gap 13 mmol/L (10-20); BUN (Urea Nitrogen) 42 mg/dL (8.4-25.7); Bilirubin, Total 1.2 mg/dL (0.2-1.2); Calc. Creatinine Clearance 43 mL/min (70-130); Calcium 8.6 mg/dL (7.8-10.44); Carbon Dioxide 19 mmol/L (23-31); Chloride 104 mmol/L (98-107); Globulin 3.7 g/dL (2.4-3.5); Glucose 118 mg/dL (83-110); Magnesium 2.3 mg/dL (1.6-2.6); Potassium 3.9 mmol/L (3.5-5.1); Protein, Total 5.9 g/dL (5.8-8.1); Sodium 132 mmol/L (136-145)
[2022-02-25] MEDS ORDERED: Morphine 2 MG/ML VIAL SLOW IVP PRN (07:56)
[2022-02-25] MEDS: Aspirin 81 mg Enteric Coated Tablet PO SCH (09:57)
[2022-02-25] MEDS: Famotidine 20 MG TAB PO SCH (09:57)
[2022-02-25] MEDS: Enoxaparin Sodium 40 MG/0.4 ML SYRINGE SC SCH (09:57)
[2022-02-25] MEDS: Carvedilol 3.125 MG TAB PO SCH ×2 (09:58→18:02)
[2022-02-25] MEDS: Lisinopril 20 MG TAB PO SCH (09:58)
[2022-02-25] MEDS: Empagliflozin 10 MG TAB PO SCH (09:58)
[2022-02-25] MEDS: hydrALAZINE 25 MG TAB PO SCH ×3 (09:58→21:21)
[2022-02-25] MEDS: Clopidogrel Bisulfate 75 MG TAB PO SCH (09:59)
[2022-02-25] MEDS: HumaLOG 300 UNITS/3 ML VIAL SC PRN ×2 (12:30→21:00)
[2022-02-25 19:20] LABS: Vancomycin, Trough 16.9 ug/mL
[2022-02-25] MEDS: Vancomycin HCl 1 GM in Sodium Chloride 0.9% 250 ML 250 ML IVPB SCH (21:05)
[2022-02-25] MEDS: Atorvastatin Calcium 40 MG TAB PO SCH (21:06)
[2022-02-26 04:58] LABS: #Basophils 0.1 10x3/uL (0.0-0.2); #Eosinphils 0.2 10x3/uL (0.0-0.5); #Monocytes 0.7 10x3/uL (0.0-1.1); #Neutrophils 13.1 10x3/uL (1.5-8.4); %Basophils 0.3 % (0.0-2.0); %Eosinophils 1.4 % (0.0-6.0); %Lymphocytes 3.3 % (18.0-47.0); %Monocytes 4.8 % (0.0-10.0); %Neutrophils 89.4 % (40.0-75.0); Hemoglobin 8.3 g/dL (13.5-17.5); Mean Corpuscular HGB CONC 34.7 g/dL (32.0-36.0); Mean Corpuscular Hemoglobin 27.3 pg (27.0-33.0); Mean Corpuscular Volume 78.6 fl (81.2-95.1); Mean Platelet Volume 10.2 fl (7.4-10.4); Platelet Count 387 10x3/uL (150-450); RBC Distribution Width 16.6 % (11.5-14.5); Red Blood Cell (RBC) Count 3.04 10x6/uL (4.32-5.72); White Blood Cell (WBC) Count 14.7 10x3/uL (3.5-10.5)
[2022-02-26 05:13] LABS: ALT (SGPT) 18 U/L (8-55); AST (SGOT) 35 U/L (5-34); Albumin 2.2 g/dL (3.4-4.8); Alkaline Phosphatase 248 U/L (40-110); Anion Gap 15 mmol/L (10-20); BUN (Urea Nitrogen) 40 mg/dL (8.4-25.7); Bilirubin, Total 1.2 mg/dL (0.2-1.2); Calc. Creatinine Clearance 48 mL/min (70-130); Calcium 8.8 mg/dL (7.8-10.44); Carbon Dioxide 18 mmol/L (23-31); Chloride 103 mmol/L (98-107); Globulin 4.1 g/dL (2.4-3.5); Glucose 122 mg/dL (83-110); Potassium 4.1 mmol/L (3.5-5.1); Protein, Total 6.3 g/dL (5.8-8.1); Sodium 132 mmol/L (136-145)
[2022-02-26] MEDS: hydrALAZINE 25 MG TAB PO SCH ×3 (08:24→21:25)
[2022-02-26] MEDS: Clopidogrel Bisulfate 75 MG TAB PO SCH (08:24)
[2022-02-26] MEDS: Enoxaparin Sodium 40 MG/0.4 ML SYRINGE SC SCH (08:24)
[2022-02-26] MEDS: Empagliflozin 10 MG TAB PO SCH (08:24)
[2022-02-26] MEDS: Carvedilol 3.125 MG TAB PO SCH ×2 (08:24→16:42)
[2022-02-26] MEDS: Aspirin 81 mg Enteric Coated Tablet PO SCH (08:24)
[2022-02-26] MEDS: Famotidine 20 MG TAB PO SCH (08:25)
[2022-02-26] MEDS: Lisinopril 20 MG TAB PO SCH (08:25)
[2022-02-26] MEDS: HumaLOG 300 UNITS/3 ML VIAL SC PRN (11:45)
[2022-02-26] MEDS: HYDROcodone/Acetaminophen 5/325 mg Tablet PO PRN ×2 (14:10→22:42)
[2022-02-26] MEDS ORDERED: Epoetin (NON-ESRD) 20,000 UNITS/ML ML SC SCH (21:00)
[2022-02-26] MEDS: Atorvastatin Calcium 40 MG TAB PO SCH (21:25)
[2022-02-26] MEDS: Vancomycin HCl 1 GM in Sodium Chloride 0.9% 250 ML 250 ML IVPB SCH (21:25)
[2022-02-26] MEDS ORDERED: Gabapentin 100 MG CAP PO SCH (23:00)
[2022-02-27 04:51] LABS: #Basophils 0.1 10x3/uL (0.0-0.2); #Eosinphils 0.2 10x3/uL (0.0-0.5); #Monocytes 0.7 10x3/uL (0.0-1.1); #Neutrophils 11.6 10x3/uL (1.5-8.4); %Basophils 0.4 % (0.0-2.0); %Eosinophils 1.8 % (0.0-6.0); %Lymphocytes 3.7 % (18.0-47.0); %Monocytes 4.9 % (0.0-10.0); %Neutrophils 88.4 % (40.0-75.0); Mean Corpuscular HGB CONC 34.5 g/dL (32.0-36.0); Mean Corpuscular Hemoglobin 27.1 pg (27.0-33.0); Mean Corpuscular Volume 78.6 fl (81.2-95.1); Mean Platelet Volume 9.9 fl (7.4-10.4); Platelet Count 359 10x3/uL (150-450); RBC Distribution Width 16.9 % (11.5-14.5); Red Blood Cell (RBC) Count 2.95 10x6/uL (4.32-5.72); White Blood Cell (WBC) Count 13.1 10x3/uL (3.5-10.5)
[2022-02-27 05:02] LABS: ALT (SGPT) 14 U/L (8-55); AST (SGOT) 21 U/L (5-34); Albumin 2.1 g/dL (3.4-4.8); Alkaline Phosphatase 229 U/L (40-110); Anion Gap 14 mmol/L (10-20); BUN (Urea Nitrogen) 37 mg/dL (8.4-25.7); Bilirubin, Total 1.2 mg/dL (0.2-1.2); Calc. Creatinine Clearance 51 mL/min (70-130); Calcium 8.6 mg/dL (7.8-10.44); Carbon Dioxide 19 mmol/L (23-31); Chloride 106 mmol/L (98-107); Globulin 3.8 g/dL (2.4-3.5); Glucose 112 mg/dL (83-110); Magnesium 2.3 mg/dL (1.6-2.6); Potassium 3.8 mmol/L (3.5-5.1); Protein, Total 5.9 g/dL (5.8-8.1); Sodium 135 mmol/L (136-145)
[2022-02-27] MEDS: Enoxaparin Sodium 40 MG/0.4 ML SYRINGE SC SCH (09:25)
[2022-02-27] MEDS: Carvedilol 3.125 MG TAB PO SCH ×2 (09:25→17:27)
[2022-02-27] MEDS: Ferrous Gluconate 324 MG TAB PO SCH (09:25)
[2022-02-27] MEDS: Famotidine 20 MG TAB PO SCH (09:26)
[2022-02-27] MEDS: Aspirin 81 mg Enteric Coated Tablet PO SCH (09:26)
[2022-02-27] MEDS: Empagliflozin 10 MG TAB PO SCH (09:26)
[2022-02-27] MEDS: Clopidogrel Bisulfate 75 MG TAB PO SCH (09:26)
[2022-02-27] MEDS: hydrALAZINE 25 MG TAB PO SCH ×3 (11:33→20:41)
[2022-02-27] MEDS: Lisinopril 20 MG TAB PO SCH (11:33)
[2022-02-27] MEDS: HumaLOG 300 UNITS/3 ML VIAL SC PRN (17:28)
[2022-02-27] MEDS: Atorvastatin Calcium 40 MG TAB PO SCH (20:41)
[2022-02-27] MEDS: Vancomycin HCl 1 GM in Sodium Chloride 0.9% 250 ML 250 ML IVPB SCH (20:42)
[2022-02-28] MEDS: Acetaminophen 325 MG TAB PO PRN (01:22)
[2022-02-28 04:34] LABS: ALT (SGPT) 13 U/L (8-55); AST (SGOT) 20 U/L (5-34); Albumin 2.2 g/dL (3.4-4.8); Alkaline Phosphatase 227 U/L (40-110); Anion Gap 15 mmol/L (10-20); BUN (Urea Nitrogen) 34 mg/dL (8.4-25.7); Bilirubin, Total 1.2 mg/dL (0.2-1.2); Calc. Creatinine Clearance 45 mL/min (70-130); Calcium 8.6 mg/dL (7.8-10.44); Carbon Dioxide 20 mmol/L (23-31); Chloride 106 mmol/L (98-107); Globulin 3.8 g/dL (2.4-3.5); Glucose 137 mg/dL (83-110); Magnesium 2.2 mg/dL (1.6-2.6); Sodium 137 mmol/L (136-145)
[2022-02-28 04:35] LABS: INR-International Normal Ratio 1.1; PTT 37.6 sec (22.0-33.0); Prothrombin Time 11.8 sec (9.5-12.1)
[2022-02-28 04:51] LABS: #Basophils 0.1 10x3/uL (0.0-0.2); #Eosinphils 0.2 10x3/uL (0.0-0.5); #Monocytes 0.7 10x3/uL (0.0-1.1); #Neutrophils 12.2 10x3/uL (1.5-8.4); %Basophils 0.4 % (0.0-2.0); %Eosinophils 1.5 % (0.0-6.0); %Monocytes 5.3 % (0.0-10.0); %Neutrophils 87.9 % (40.0-75.0); Hemoglobin 7.5 g/dL (13.5-17.5); Mean Corpuscular HGB CONC 33.8 g/dL (32.0-36.0); Mean Corpuscular Hemoglobin 26.5 pg (27.0-33.0); Mean Corpuscular Volume 78.4 fl (81.2-95.1); Platelet Count 355 10x3/uL (150-450); RBC Distribution Width 16.8 % (11.5-14.5); Red Blood Cell (RBC) Count 2.83 10x6/uL (4.32-5.72); White Blood Cell (WBC) Count 13.9 10x3/uL (3.5-10.5)
[2022-02-28] MEDS: Carvedilol 3.125 MG TAB PO SCH ×2 (08:47→15:57)
[2022-02-28] MEDS: Lisinopril 20 MG TAB PO SCH (08:47)
[2022-02-28] MEDS: Clopidogrel Bisulfate 75 MG TAB PO SCH (08:47)
[2022-02-28] MEDS: Famotidine 20 MG TAB PO SCH (08:47)
[2022-02-28] MEDS: Empagliflozin 10 MG TAB PO SCH (08:47)
[2022-02-28] MEDS: hydrALAZINE 25 MG TAB PO SCH ×3 (08:47→20:49)
[2022-02-28] MEDS: Enoxaparin Sodium 40 MG/0.4 ML SYRINGE SC SCH (08:47)
[2022-02-28] MEDS: Aspirin 81 mg Enteric Coated Tablet PO SCH (08:47)
[2022-02-28] MEDS: Ferrous Gluconate 324 MG TAB PO SCH (08:47)
[2022-02-28] MEDS: Atorvastatin Calcium 40 MG TAB PO SCH (20:50)
[2022-02-28] MEDS: HumaLOG 300 UNITS/3 ML VIAL SC PRN (20:50)
[2022-03-01 04:21] LABS: #Eosinphils 0.3 10x3/uL (0.0-0.5); #Monocytes 0.7 10x3/uL (0.0-1.1); #Neutrophils 8.5 10x3/uL (1.5-8.4); %Basophils 0.4 % (0.0-2.0); %Eosinophils 3.1 % (0.0-6.0); %Lymphocytes 6.1 % (18.0-47.0); %Monocytes 6.5 % (0.0-10.0); %Neutrophils 82.8 % (40.0-75.0); Hemoglobin 7.4 g/dL (13.5-17.5); Mean Corpuscular HGB CONC 34.4 g/dL (32.0-36.0); Mean Corpuscular Volume 78.5 fl (81.2-95.1); Mean Platelet Volume 10.1 fl (7.4-10.4); Platelet Count 330 10x3/uL (150-450); RBC Distribution Width 17.1 % (11.5-14.5); Red Blood Cell (RBC) Count 2.74 10x6/uL (4.32-5.72); White Blood Cell (WBC) Count 10.2 10x3/uL (3.5-10.5)
[2022-03-01 04:54] LABS: ALT (SGPT) 12 U/L (8-55); AST (SGOT) 19 U/L (5-34); Albumin 2.2 g/dL (3.4-4.8); Alkaline Phosphatase 220 U/L (40-110); Anion Gap 15 mmol/L (10-20); BUN (Urea Nitrogen) 30 mg/dL (8.4-25.7); Bilirubin, Total 1.1 mg/dL (0.2-1.2); Calc. Creatinine Clearance 46 mL/min (70-130); Calcium 8.6 mg/dL (7.8-10.44); Carbon Dioxide 19 mmol/L (23-31); Chloride 106 mmol/L (98-107); Globulin 3.9 g/dL (2.4-3.5); Glucose 93 mg/dL (83-110); Magnesium 2.3 mg/dL (1.6-2.6); Potassium 3.8 mmol/L (3.5-5.1); Protein, Total 6.1 g/dL (5.8-8.1); Sodium 136 mmol/L (136-145)
[2022-03-01] MEDS: hydrALAZINE 25 MG TAB PO SCH ×3 (08:31→20:34)
[2022-03-01] MEDS: Famotidine 20 MG TAB PO SCH (08:31)
[2022-03-01] MEDS: Empagliflozin 10 MG TAB PO SCH (08:32)
[2022-03-01] MEDS: HYDROcodone/Acetaminophen 5/325 mg Tablet PO PRN (08:32)
[2022-03-01] MEDS: Carvedilol 3.125 MG TAB PO SCH ×2 (08:32→16:48)
[2022-03-01] MEDS: Ferrous Gluconate 324 MG TAB PO SCH (08:32)
[2022-03-01] MEDS: Lisinopril 20 MG TAB PO SCH (08:32)
[2022-03-01] MEDS ORDERED: Lidocaine 1% PF 5 ML VIAL ONE (08:40)
[2022-03-01] MEDS ORDERED: Sodium Bicarbonate 2.5 MEQ/5 ML VIAL ONE (08:40)
[2022-03-01] MEDS ORDERED: Vancomycin HCl 1 GM in Sodium Chloride 0.9% 250 ML 250 ML IVPB SCH (09:00)
[2022-03-01] MEDS: Atorvastatin Calcium 40 MG TAB PO SCH (20:33)
[2022-03-02 05:04] LABS: #Basophils 0.1 10x3/uL (0.0-0.2); #Eosinphils 0.4 10x3/uL (0.0-0.5); #Monocytes 0.7 10x3/uL (0.0-1.1); #Neutrophils 9.3 10x3/uL (1.5-8.4); %Basophils 0.5 % (0.0-2.0); %Eosinophils 3.3 % (0.0-6.0); %Lymphocytes 4.9 % (18.0-47.0); %Monocytes 6.3 % (0.0-10.0); %Neutrophils 83.8 % (40.0-75.0); ALT (SGPT) 13 U/L (8-55); AST (SGOT) 21 U/L (5-34); Albumin 2.2 g/dL (3.4-4.8); Alkaline Phosphatase 253 U/L (40-110); Anion Gap 14 mmol/L (10-20); BUN (Urea Nitrogen) 27 mg/dL (8.4-25.7); Bilirubin, Total 1.1 mg/dL (0.2-1.2); Calc. Creatinine Clearance 49 mL/min (70-130); Calcium 8.7 mg/dL (7.8-10.44); Carbon Dioxide 20 mmol/L (23-31); Chloride 104 mmol/L (98-107); Globulin 4.4 g/dL (2.4-3.5); Glucose 116 mg/dL (83-110); Hemoglobin 7.9 g/dL (13.5-17.5); Magnesium 2.3 mg/dL (1.6-2.6); Mean Corpuscular HGB CONC 34.1 g/dL (32.0-36.0); Mean Corpuscular Hemoglobin 26.5 pg (27.0-33.0); Mean Corpuscular Volume 77.9 fl (81.2-95.1); Mean Platelet Volume 10.1 fl (7.4-10.4); Platelet Count 339 10x3/uL (150-450); Protein, Total 6.6 g/dL (5.8-8.1); RBC Distribution Width 17.1 % (11.5-14.5); Red Blood Cell (RBC) Count 2.98 10x6/uL (4.32-5.72); Sodium 134 mmol/L (136-145); White Blood Cell (WBC) Count 11.1 10x3/uL (3.5-10.5)
[2022-03-02 05:06] LABS: Lactic Acid 0.7 mmol/L (0.5-2.2)
[2022-03-02 05:46] LABS: Actual Bicarbonate (HCO3v) 23 mEq/L (22-28); Base Excess -1.3 mEq/L (-2.0 to +3.0); Calcium, Ionized (venous) 1.15 mmol/L (1.16-1.32); Chloride (VBG) 104 mmol/L (98-106); Hemoglobin (Hb) 8.7 g/dL (12.6-17.4); Potassium (VBG) 3.92 mmol/L (3.70-5.30); Puncture Site Other Site; pH (venous) 7.44 (7.32-7.43)
[2022-03-02] MEDS: Famotidine 20 MG TAB PO SCH (11:15)
[2022-03-02] MEDS: hydrALAZINE 25 MG TAB PO SCH ×3 (11:15→21:33)
[2022-03-02] MEDS: Lisinopril 20 MG TAB PO SCH (11:15)
[2022-03-02] MEDS: Empagliflozin 10 MG TAB PO SCH (11:16)
[2022-03-02] MEDS: Ferrous Gluconate 324 MG TAB PO SCH (11:16)
[2022-03-02] MEDS: Carvedilol 3.125 MG TAB PO SCH ×2 (11:38→17:00)
[2022-03-02] MEDS: HumaLOG 300 UNITS/3 ML VIAL SC PRN (13:56)
[2022-03-02 14:17] LABS: SARS-CoV-2 PCR by NAA Not Detected (NotDetected)
[2022-03-02 19:33] LABS: Vancomycin, Trough 22.1 ug/mL
[2022-03-02] MEDS: Atorvastatin Calcium 40 MG TAB PO SCH (21:33)
[2022-03-03 04:44] LABS: #Basophils 0.1 10x3/uL (0.0-0.2); #Eosinphils 0.3 10x3/uL (0.0-0.5); #Monocytes 0.6 10x3/uL (0.0-1.1); #Neutrophils 10.2 10x3/uL (1.5-8.4); %Basophils 0.4 % (0.0-2.0); %Eosinophils 2.8 % (0.0-6.0); %Lymphocytes 4.6 % (18.0-47.0); %Monocytes 5.4 % (0.0-10.0); Mean Corpuscular HGB CONC 33.8 g/dL (32.0-36.0); Mean Corpuscular Hemoglobin 26.2 pg (27.0-33.0); Mean Corpuscular Volume 77.7 fl (81.2-95.1); Mean Platelet Volume 10.1 fl (7.4-10.4); Platelet Count 338 10x3/uL (150-450); RBC Distribution Width 17.2 % (11.5-14.5); Red Blood Cell (RBC) Count 3.05 10x6/uL (4.32-5.72); White Blood Cell (WBC) Count 11.8 10x3/uL (3.5-10.5)
[2022-03-03 04:55] LABS: ALT (SGPT) 11 U/L (8-55); AST (SGOT) 19 U/L (5-34); Albumin 2.2 g/dL (3.4-4.8); Alkaline Phosphatase 246 U/L (40-110); Anion Gap 16 mmol/L (10-20); BUN (Urea Nitrogen) 27 mg/dL (8.4-25.7); Bilirubin, Total 1.1 mg/dL (0.2-1.2); Calc. Creatinine Clearance 51 mL/min (70-130); Calcium 8.7 mg/dL (7.8-10.44); Carbon Dioxide 20 mmol/L (23-31); Chloride 102 mmol/L (98-107); Globulin 4.2 g/dL (2.4-3.5); Glucose 127 mg/dL (83-110); Magnesium 2.2 mg/dL (1.6-2.6); Potassium 3.8 mmol/L (3.5-5.1); Protein, Total 6.4 g/dL (5.8-8.1); Sodium 134 mmol/L (136-145)
[2022-03-03] MEDS: Empagliflozin 10 MG TAB PO SCH (08:51)
[2022-03-03] MEDS: hydrALAZINE 25 MG TAB PO SCH ×3 (08:51→21:47)
[2022-03-03] MEDS: Ferrous Gluconate 324 MG TAB PO SCH (08:51)
[2022-03-03] MEDS: Carvedilol 3.125 MG TAB PO SCH ×2 (08:52→21:47)
[2022-03-03] MEDS: Famotidine 20 MG TAB PO SCH (08:52)
[2022-03-03] MEDS: Vancomycin HCl 1 GM in Sodium Chloride 0.9% 250 ML 250 ML IVPB SCH (08:52)
[2022-03-03] MEDS: Lisinopril 20 MG TAB PO SCH (08:52)
[2022-03-03] MEDS: Atorvastatin Calcium 40 MG TAB PO SCH (21:48)
[2022-03-04 01:01] LABS: SARS-CoV-2 PCR by NAA Not Detected (NotDetected)
[2022-03-04 06:55] LABS: #Eosinphils 0.2 10x3/uL (0.0-0.5); #Monocytes 0.8 10x3/uL (0.0-1.1); #Neutrophils 9.4 10x3/uL (1.5-8.4); %Basophils 0.4 % (0.0-2.0); %Eosinophils 1.7 % (0.0-6.0); %Lymphocytes 5.2 % (18.0-47.0); %Monocytes 6.9 % (0.0-10.0); %Neutrophils 84.8 % (40.0-75.0); Hemoglobin 8.4 g/dL (13.5-17.5); Mean Corpuscular HGB CONC 33.6 g/dL (32.0-36.0); Mean Corpuscular Hemoglobin 26.3 pg (27.0-33.0); Mean Corpuscular Volume 78.4 fl (81.2-95.1); Mean Platelet Volume 9.8 fl (7.4-10.4); Platelet Count 344 10x3/uL (150-450); RBC Distribution Width 17.5 % (11.5-14.5); Red Blood Cell (RBC) Count 3.19 10x6/uL (4.32-5.72)
[2022-03-04 07:07] LABS: ALT (SGPT) 11 U/L (8-55); AST (SGOT) 21 U/L (5-34); Albumin 2.4 g/dL (3.4-4.8); Alkaline Phosphatase 259 U/L (40-110); Anion Gap 15 mmol/L (10-20); BUN (Urea Nitrogen) 24 mg/dL (8.4-25.7); Bilirubin, Total 1.2 mg/dL (0.2-1.2); Calc. Creatinine Clearance 49 mL/min (70-130); Calcium 8.9 mg/dL (7.8-10.44); Carbon Dioxide 22 mmol/L (23-31); Chloride 102 mmol/L (98-107); Globulin 4.4 g/dL (2.4-3.5); Glucose 134 mg/dL (83-110); Magnesium 2.3 mg/dL (1.6-2.6); Protein, Total 6.8 g/dL (5.8-8.1); Sodium 135 mmol/L (136-145)
[2022-03-04] MEDS: Carvedilol 3.125 MG TAB PO SCH ×2 (07:40→16:11)
[2022-03-04] MEDS: Ferrous Gluconate 324 MG TAB PO SCH ×2 (08:34→09:38)
[2022-03-04] MEDS: Famotidine 20 MG TAB PO SCH (09:39)
[2022-03-04] MEDS: Empagliflozin 10 MG TAB PO SCH (09:39)
[2022-03-04] MEDS: hydrALAZINE 25 MG TAB PO SCH ×3 (09:40→21:28)
[2022-03-04] MEDS: Lisinopril 20 MG TAB PO SCH (09:41)
[2022-03-04] MEDS ORDERED: PROPOFOL 20 ML ONE (10:43)
[2022-03-04] MEDS ORDERED: Ketamine 50 MG/ML (10ML VIAL) ONE (10:44)
[2022-03-04] MEDS ORDERED: EPOETIN ALFA-EPBX (ESRD) 10,000 UNIT/ML VIAL SC SCH (11:30)
[2022-03-04] MEDS: Atorvastatin Calcium 40 MG TAB PO SCH (21:29)
[2022-03-04] MEDS: HumaLOG 300 UNITS/3 ML VIAL SC PRN (21:36)
[2022-03-05 05:45] LABS: #Basophils 0.1 10x3/uL (0.0-0.2); #Eosinphils 0.2 10x3/uL (0.0-0.5); #Monocytes 0.7 10x3/uL (0.0-1.1); #Neutrophils 9.8 10x3/uL (1.5-8.4); %Basophils 0.5 % (0.0-2.0); %Eosinophils 1.8 % (0.0-6.0); %Lymphocytes 4.8 % (18.0-47.0); %Monocytes 5.9 % (0.0-10.0); %Neutrophils 86.2 % (40.0-75.0); Hemoglobin 8.4 g/dL (13.5-17.5); Mean Corpuscular HGB CONC 32.8 g/dL (32.0-36.0); Mean Corpuscular Hemoglobin 25.8 pg (27.0-33.0); Mean Corpuscular Volume 78.5 fl (81.2-95.1); Mean Platelet Volume 9.9 fl (7.4-10.4); Platelet Count 333 10x3/uL (150-450); RBC Distribution Width 17.6 % (11.5-14.5); Red Blood Cell (RBC) Count 3.26 10x6/uL (4.32-5.72); White Blood Cell (WBC) Count 11.4 10x3/uL (3.5-10.5)
[2022-03-05 06:32] LABS: ALT (SGPT) 9 U/L (8-55); AST (SGOT) 17 U/L (5-34); Albumin 2.2 g/dL (3.4-4.8); Alkaline Phosphatase 223 U/L (40-110); Anion Gap 16 mmol/L (10-20); BUN (Urea Nitrogen) 25 mg/dL (8.4-25.7); Bilirubin, Total 1.1 mg/dL (0.2-1.2); Calc. Creatinine Clearance 50 mL/min (70-130); Calcium 8.6 mg/dL (7.8-10.44); Carbon Dioxide 20 mmol/L (23-31); Chloride 102 mmol/L (98-107); Globulin 4.1 g/dL (2.4-3.5); Glucose 138 mg/dL (83-110); Magnesium 2.2 mg/dL (1.6-2.6); Potassium 3.6 mmol/L (3.5-5.1); Protein, Total 6.3 g/dL (5.8-8.1); Sodium 134 mmol/L (136-145)
[2022-03-05 08:32] LABS: Vancomycin, Trough 16.5 ug/mL
[2022-03-05] MEDS: Lisinopril 20 MG TAB PO SCH (09:05)
[2022-03-05] MEDS: Vancomycin HCl 1 GM in Sodium Chloride 0.9% 250 ML 250 ML IVPB SCH (09:05)
[2022-03-05] MEDS: hydrALAZINE 25 MG TAB PO SCH ×3 (09:06→20:58)
[2022-03-05] MEDS: Famotidine 20 MG TAB PO SCH (09:06)
[2022-03-05] MEDS: Carvedilol 3.125 MG TAB PO SCH ×2 (09:06→16:06)
[2022-03-05] MEDS: Ferrous Gluconate 324 MG TAB PO SCH (09:06)
[2022-03-05] MEDS: Empagliflozin 10 MG TAB PO SCH (09:09)
[2022-03-05] MEDS: HumaLOG 300 UNITS/3 ML VIAL SC PRN ×3 (13:52→21:08)
[2022-03-05] MEDS: Atorvastatin Calcium 40 MG TAB PO SCH (20:58)
[2022-03-05] MEDS: EPOETIN ALFA-EPBX (ESRD) 10,000 UNIT/ML VIAL SC SCH (21:00)
[2022-03-06 05:51] LABS: Anion Gap 15 mmol/L (10-20); BUN (Urea Nitrogen) 23 mg/dL (8.4-25.7); Calc. Creatinine Clearance 46 mL/min (70-130); Calcium 8.6 mg/dL (7.8-10.44); Carbon Dioxide 22 mmol/L (23-31); Chloride 102 mmol/L (98-107); Glucose 141 mg/dL (83-110); Potassium 3.6 mmol/L (3.5-5.1); Sodium 135 mmol/L (136-145)
[2022-03-06 05:52] LABS: #Basophils 0.1 10x3/uL (0.0-0.2); #Eosinphils 0.2 10x3/uL (0.0-0.5); #Monocytes 0.7 10x3/uL (0.0-1.1); #Neutrophils 10.1 10x3/uL (1.5-8.4); %Basophils 0.4 % (0.0-2.0); %Eosinophils 1.9 % (0.0-6.0); %Lymphocytes 5.6 % (18.0-47.0); %Monocytes 6.1 % (0.0-10.0); %Neutrophils 85.2 % (40.0-75.0); Hemoglobin 7.6 g/dL (13.5-17.5); Mean Corpuscular HGB CONC 33.5 g/dL (32.0-36.0); Mean Corpuscular Hemoglobin 26.4 pg (27.0-33.0); Mean Corpuscular Volume 78.8 fl (81.2-95.1); Mean Platelet Volume 9.7 fl (7.4-10.4); Platelet Count 336 10x3/uL (150-450); RBC Distribution Width 17.5 % (11.5-14.5); Red Blood Cell (RBC) Count 2.88 10x6/uL (4.32-5.72); White Blood Cell (WBC) Count 11.9 10x3/uL (3.5-10.5)
[2022-03-06] MEDS: Ferrous Gluconate 324 MG TAB PO SCH (09:37)
[2022-03-06] MEDS: Famotidine 20 MG TAB PO SCH (09:37)
[2022-03-06] MEDS: Carvedilol 3.125 MG TAB PO SCH ×2 (09:37→16:09)
[2022-03-06] MEDS: Lisinopril 20 MG TAB PO SCH (09:37)
[2022-03-06] MEDS: hydrALAZINE 25 MG TAB PO SCH ×3 (09:37→20:43)
[2022-03-06] MEDS: Empagliflozin 10 MG TAB PO SCH (09:38)
[2022-03-06] MEDS: HumaLOG 300 UNITS/3 ML VIAL SC PRN (17:30)
[2022-03-06] MEDS: Atorvastatin Calcium 40 MG TAB PO SCH (20:42)
[2022-03-07 04:34] LABS: #Basophils 0.1 10x3/uL (0.0-0.2); #Eosinphils 0.2 10x3/uL (0.0-0.5); #Monocytes 0.6 10x3/uL (0.0-1.1); #Neutrophils 11.2 10x3/uL (1.5-8.4); %Basophils 0.6 % (0.0-2.0); %Eosinophils 1.3 % (0.0-6.0); %Monocytes 4.9 % (0.0-10.0); %Neutrophils 86.7 % (40.0-75.0); Hemoglobin 7.8 g/dL (13.5-17.5); Mean Corpuscular HGB CONC 32.8 g/dL (32.0-36.0); Mean Corpuscular Hemoglobin 25.9 pg (27.0-33.0); Mean Corpuscular Volume 79.1 fl (81.2-95.1); Mean Platelet Volume 10.5 fl (7.4-10.4); Platelet Count 373 10x3/uL (150-450); RBC Distribution Width 17.8 % (11.5-14.5); Red Blood Cell (RBC) Count 3.01 10x6/uL (4.32-5.72)
[2022-03-07 04:46] LABS: Anion Gap 16 mmol/L (10-20); BUN (Urea Nitrogen) 20 mg/dL (8.4-25.7); Calc. Creatinine Clearance 47 mL/min (70-130); Calcium 8.8 mg/dL (7.8-10.44); Carbon Dioxide 22 mmol/L (23-31); Chloride 104 mmol/L (98-107); Glucose 125 mg/dL (83-110); Potassium 3.7 mmol/L (3.5-5.1); Sodium 138 mmol/L (136-145)
[2022-03-07] MEDS: hydrALAZINE 25 MG TAB PO SCH ×3 (09:33→20:15)
[2022-03-07] MEDS: Ferrous Gluconate 324 MG TAB PO SCH (09:33)
[2022-03-07] MEDS: Vancomycin HCl 1 GM in Sodium Chloride 0.9% 250 ML 250 ML IVPB SCH (09:34)
[2022-03-07] MEDS: Lisinopril 20 MG TAB PO SCH (09:34)
[2022-03-07] MEDS: Famotidine 20 MG TAB PO SCH (09:34)
[2022-03-07] MEDS: Carvedilol 3.125 MG TAB PO SCH ×2 (09:34→17:50)
[2022-03-07] MEDS: Empagliflozin 10 MG TAB PO SCH (09:35)
[2022-03-07] MEDS: HumaLOG 300 UNITS/3 ML VIAL SC PRN (17:50)
[2022-03-07] MEDS: Atorvastatin Calcium 40 MG TAB PO SCH (20:14)
[2022-03-07] MEDS: Acetaminophen 325 MG TAB PO PRN (20:15)
[2022-03-08 03:31] LABS: #Basophils 0.1 10x3/uL (0.0-0.2); #Eosinphils 0.2 10x3/uL (0.0-0.5); #Monocytes 0.7 10x3/uL (0.0-1.1); #Neutrophils 9.9 10x3/uL (1.5-8.4); %Basophils 0.5 % (0.0-2.0); %Lymphocytes 6.4 % (18.0-47.0); %Monocytes 6.1 % (0.0-10.0); %Neutrophils 84.4 % (40.0-75.0); Hemoglobin 7.1 g/dL (13.5-17.5); Mean Corpuscular Hemoglobin 25.9 pg (27.0-33.0); Mean Platelet Volume 10.3 fl (7.4-10.4); Platelet Count 323 10x3/uL (150-450); RBC Distribution Width 17.6 % (11.5-14.5); Red Blood Cell (RBC) Count 2.74 10x6/uL (4.32-5.72); White Blood Cell (WBC) Count 11.7 10x3/uL (3.5-10.5)
[2022-03-08 04:02] LABS: Anion Gap 16 mmol/L (10-20); BUN (Urea Nitrogen) 20 mg/dL (8.4-25.7); Calc. Creatinine Clearance 45 mL/min (70-130); Calcium 8.4 mg/dL (7.8-10.44); Carbon Dioxide 21 mmol/L (23-31); Chloride 102 mmol/L (98-107); Glucose 140 mg/dL (83-110); Potassium 3.7 mmol/L (3.5-5.1); Sodium 135 mmol/L (136-145)
[2022-03-08] MEDS: hydrALAZINE 25 MG TAB PO SCH ×4 (09:07→20:49)
[2022-03-08] MEDS: Ferrous Gluconate 324 MG TAB PO SCH (09:36)
[2022-03-08] MEDS: Empagliflozin 10 MG TAB PO SCH (09:36)
[2022-03-08] MEDS: Lisinopril 20 MG TAB PO SCH (09:37)
[2022-03-08] MEDS: Acetaminophen 325 MG TAB PO PRN ×2 (09:37→17:29)
[2022-03-08] MEDS: Carvedilol 3.125 MG TAB PO SCH ×2 (09:38→17:29)
[2022-03-08] MEDS: Famotidine 20 MG TAB PO SCH (09:38)
[2022-03-08] MEDS: DAPTOmycin 800 MG in Sodium Chloride 0.9% 50 ML IVPB SCH (16:49)
[2022-03-08] MEDS: HumaLOG 300 UNITS/3 ML VIAL SC PRN (17:30)
[2022-03-08] MEDS: Rifampin 300 MG CAP PO SCH (20:50)
[2022-03-09 05:56] LABS: #Basophils 0.1 10x3/uL (0.0-0.2); #Eosinphils 0.2 10x3/uL (0.0-0.5); #Monocytes 0.6 10x3/uL (0.0-1.1); #Neutrophils 9.4 10x3/uL (1.5-8.4); %Basophils 0.7 % (0.0-2.0); %Eosinophils 1.7 % (0.0-6.0); %Lymphocytes 6.3 % (18.0-47.0); %Monocytes 5.8 % (0.0-10.0); Mean Corpuscular HGB CONC 32.4 g/dL (32.0-36.0); Mean Corpuscular Hemoglobin 26.2 pg (27.0-33.0); Mean Platelet Volume 10.5 fl (7.4-10.4); Platelet Count 341 10x3/uL (150-450); RBC Distribution Width 17.7 % (11.5-14.5); Red Blood Cell (RBC) Count 3.05 10x6/uL (4.32-5.72); White Blood Cell (WBC) Count 11.1 10x3/uL (3.5-10.5)
[2022-03-09 06:44] LABS: Anion Gap 17 mmol/L (10-20); BUN (Urea Nitrogen) 19 mg/dL (8.4-25.7); Calc. Creatinine Clearance 46 mL/min (70-130); Calcium 8.9 mg/dL (7.8-10.44); Carbon Dioxide 20 mmol/L (23-31); Chloride 99 mmol/L (98-107); Glucose 83 mg/dL (83-110); Sodium 132 mmol/L (136-145)
[2022-03-09] MEDS: Ferrous Gluconate 324 MG TAB PO SCH (08:44)
[2022-03-09] MEDS: hydrALAZINE 25 MG TAB PO SCH ×3 (08:44→20:43)
[2022-03-09] MEDS: Famotidine 20 MG TAB PO SCH (08:44)
[2022-03-09] MEDS: Lisinopril 20 MG TAB PO SCH (08:44)
[2022-03-09] MEDS: Carvedilol 3.125 MG TAB PO SCH ×2 (08:44→18:28)
[2022-03-09] MEDS: Empagliflozin 10 MG TAB PO SCH (08:45)
[2022-03-09] MEDS: Rifampin 300 MG CAP PO SCH ×2 (08:45→21:02)
[2022-03-09] MEDS: DAPTOmycin 800 MG in Sodium Chloride 0.9% 50 ML IVPB SCH (15:06)
[2022-03-09] MEDS: Acetaminophen 325 MG TAB PO PRN (15:07)
[2022-03-09 22:07] LABS: SARS-CoV-2 PCR by NAA Not Detected (NotDetected)
[2022-03-10 05:35] LABS: #Basophils 0.1 10x3/uL (0.0-0.2); #Eosinphils 0.2 10x3/uL (0.0-0.5); #Monocytes 0.8 10x3/uL (0.0-1.1); #Neutrophils 9.4 10x3/uL (1.5-8.4); %Basophils 0.8 % (0.0-2.0); %Lymphocytes 6.6 % (18.0-47.0); %Monocytes 6.7 % (0.0-10.0); %Neutrophils 83.5 % (40.0-75.0); Hemoglobin 7.9 g/dL (13.5-17.5); Mean Corpuscular HGB CONC 33.5 g/dL (32.0-36.0); Mean Corpuscular Hemoglobin 26.2 pg (27.0-33.0); Mean Corpuscular Volume 78.4 fl (81.2-95.1); Mean Platelet Volume 9.9 fl (7.4-10.4); Platelet Count 318 10x3/uL (150-450); RBC Distribution Width 17.5 % (11.5-14.5); Red Blood Cell (RBC) Count 3.01 10x6/uL (4.32-5.72); White Blood Cell (WBC) Count 11.2 10x3/uL (3.5-10.5)
[2022-03-10 05:36] LABS: Anion Gap 17 mmol/L (10-20); BUN (Urea Nitrogen) 18 mg/dL (8.4-25.7); Calc. Creatinine Clearance 45 mL/min (70-130); Calcium 8.6 mg/dL (7.8-10.44); Carbon Dioxide 22 mmol/L (23-31); Chloride 99 mmol/L (98-107); Glucose 107 mg/dL (83-110); Potassium 3.8 mmol/L (3.5-5.1); Sodium 134 mmol/L (136-145)
[2022-03-10] MEDS: Acetaminophen 325 MG TAB PO PRN ×2 (10:09→17:00)
[2022-03-10] MEDS: hydrALAZINE 25 MG TAB PO SCH ×3 (10:09→21:18)
[2022-03-10] MEDS: Famotidine 20 MG TAB PO SCH (10:09)
[2022-03-10] MEDS: Ferrous Gluconate 324 MG TAB PO SCH (10:09)
[2022-03-10] MEDS: Lisinopril 20 MG TAB PO SCH (10:10)
[2022-03-10] MEDS: Empagliflozin 10 MG TAB PO SCH (10:10)
[2022-03-10] MEDS: Carvedilol 3.125 MG TAB PO SCH ×2 (10:10→16:59)
[2022-03-10] MEDS: Rifampin 300 MG CAP PO SCH ×2 (10:10→21:18)
[2022-03-10] MEDS: DAPTOmycin 800 MG in Sodium Chloride 0.9% 50 ML IVPB SCH (16:59)
[2022-03-10 17:06] VITALS: BMI 21.6
[2022-03-11 04:47] LABS: #Basophils 0.1 10x3/uL (0.0-0.2); #Eosinphils 0.2 10x3/uL (0.0-0.5); #Monocytes 0.7 10x3/uL (0.0-1.1); #Neutrophils 8.4 10x3/uL (1.5-8.4); %Basophils 0.8 % (0.0-2.0); %Eosinophils 2.4 % (0.0-6.0); %Lymphocytes 6.8 % (18.0-47.0); %Monocytes 7.1 % (0.0-10.0); %Neutrophils 82.5 % (40.0-75.0); Hemoglobin 7.6 g/dL (13.5-17.5); Mean Corpuscular HGB CONC 32.6 g/dL (32.0-36.0); Mean Corpuscular Hemoglobin 25.8 pg (27.0-33.0); Mean Platelet Volume 10.1 fl (7.4-10.4); Platelet Count 355 10x3/uL (150-450); RBC Distribution Width 17.6 % (11.5-14.5); Red Blood Cell (RBC) Count 2.95 10x6/uL (4.32-5.72); White Blood Cell (WBC) Count 10.2 10x3/uL (3.5-10.5)
[2022-03-11 05:06] LABS: Anion Gap 15 mmol/L (10-20); BUN (Urea Nitrogen) 20 mg/dL (8.4-25.7); Calc. Creatinine Clearance 44 mL/min (70-130); Calcium 8.5 mg/dL (7.8-10.44); Carbon Dioxide 23 mmol/L (23-31); Chloride 100 mmol/L (98-107); Glucose 146 mg/dL (83-110); Potassium 3.5 mmol/L (3.5-5.1); Sodium 134 mmol/L (136-145)
[2022-03-11] MEDS: hydrALAZINE 25 MG TAB PO SCH ×2 (11:30→16:48)
[2022-03-11] MEDS: Famotidine 20 MG TAB PO SCH (11:31)
[2022-03-11] MEDS: Lisinopril 20 MG TAB PO SCH (11:31)
[2022-03-11] MEDS: Carvedilol 3.125 MG TAB PO SCH ×2 (11:31→16:48)
[2022-03-11] MEDS: Ferrous Gluconate 324 MG TAB PO SCH (11:31)
[2022-03-11] MEDS: Empagliflozin 10 MG TAB PO SCH (11:33)
[2022-03-11] MEDS: Rifampin 300 MG CAP PO SCH (11:49)
[2022-03-11] MEDS: DAPTOmycin 800 MG in Sodium Chloride 0.9% 50 ML IVPB SCH (16:48)
[2022-03-11] MEDS ORDERED: Atorvastatin Calcium 40 MG TAB PO SCH (21:00)
[2022-03-12] MEDS: Rifampin 300 MG CAP PO SCH ×3 (02:38→22:07)
[2022-03-12] MEDS: hydrALAZINE 25 MG TAB PO SCH ×4 (02:38→22:08)
[2022-03-12 04:30] LABS: Anion Gap 18 mmol/L (10-20); BUN (Urea Nitrogen) 18 mg/dL (8.4-25.7); Calc. Creatinine Clearance 46 mL/min (70-130); Calcium 9.1 mg/dL (7.8-10.44); Carbon Dioxide 25 mmol/L (23-31); Chloride 100 mmol/L (98-107); Glucose 141 mg/dL (83-110); Potassium 3.7 mmol/L (3.5-5.1); Sodium 139 mmol/L (136-145)
[2022-03-12 04:48] LABS: #Basophils 0.1 10x3/uL (0.0-0.2); #Eosinphils 0.3 10x3/uL (0.0-0.5); #Monocytes 0.7 10x3/uL (0.0-1.1); #Neutrophils 8.2 10x3/uL (1.5-8.4); %Basophils 1.2 % (0.0-2.0); %Eosinophils 2.8 % (0.0-6.0); %Lymphocytes 5.9 % (18.0-47.0); %Monocytes 6.6 % (0.0-10.0); %Neutrophils 83.1 % (40.0-75.0); Hemoglobin 8.6 g/dL (13.5-17.5); Mean Corpuscular HGB CONC 32.7 g/dL (32.0-36.0); Mean Corpuscular Hemoglobin 26.1 pg (27.0-33.0); Mean Corpuscular Volume 79.9 fl (81.2-95.1); Mean Platelet Volume 10.2 fl (7.4-10.4); Platelet Count 373 10x3/uL (150-450); RBC Distribution Width 17.7 % (11.5-14.5); Red Blood Cell (RBC) Count 3.29 10x6/uL (4.32-5.72); White Blood Cell (WBC) Count 9.8 10x3/uL (3.5-10.5)
[2022-03-12] MEDS: Ferrous Gluconate 324 MG TAB PO SCH (10:11)
[2022-03-12] MEDS: Famotidine 20 MG TAB PO SCH (10:11)
[2022-03-12] MEDS: Carvedilol 3.125 MG TAB PO SCH ×2 (10:12→17:43)
[2022-03-12] MEDS: Lisinopril 20 MG TAB PO SCH (10:12)
[2022-03-12] MEDS: Empagliflozin 10 MG TAB PO SCH (10:13)
[2022-03-12] MEDS ORDERED: Sodium Chloride 0.9% 50 ML ONE (17:36)
[2022-03-12] MEDS: DAPTOmycin 800 MG in Sodium Chloride 0.9% 50 ML IVPB SCH (17:43)
[2022-03-12] MEDS: EPOETIN ALFA-EPBX (ESRD) 10,000 UNIT/ML VIAL SC SCH (22:07)
[2022-03-13 04:28] LABS: #Basophils 0.1 10x3/uL (0.0-0.2); #Eosinphils 0.3 10x3/uL (0.0-0.5); #Monocytes 0.7 10x3/uL (0.0-1.1); #Neutrophils 7.4 10x3/uL (1.5-8.4); %Basophils 1.2 % (0.0-2.0); %Eosinophils 2.8 % (0.0-6.0); %Lymphocytes 6.8 % (18.0-47.0); %Monocytes 7.4 % (0.0-10.0); %Neutrophils 81.5 % (40.0-75.0); Hemoglobin 7.7 g/dL (13.5-17.5); Mean Corpuscular HGB CONC 31.8 g/dL (32.0-36.0); Mean Corpuscular Hemoglobin 25.3 pg (27.0-33.0); Mean Corpuscular Volume 79.6 fl (81.2-95.1); Mean Platelet Volume 9.5 fl (7.4-10.4); Platelet Count 367 10x3/uL (150-450); RBC Distribution Width 17.5 % (11.5-14.5); Red Blood Cell (RBC) Count 3.04 10x6/uL (4.32-5.72); White Blood Cell (WBC) Count 9.1 10x3/uL (3.5-10.5)
[2022-03-13 04:40] LABS: Anion Gap 16 mmol/L (10-20); BUN (Urea Nitrogen) 18 mg/dL (8.4-25.7); Calc. Creatinine Clearance 50 mL/min (70-130); Calcium 8.8 mg/dL (7.8-10.44); Carbon Dioxide 24 mmol/L (23-31); Chloride 99 mmol/L (98-107); Glucose 121 mg/dL (83-110); Potassium 3.6 mmol/L (3.5-5.1); Sodium 135 mmol/L (136-145)
[2022-03-13] MEDS: hydrALAZINE 25 MG TAB PO SCH ×3 (08:55→21:46)
[2022-03-13] MEDS: Ferrous Gluconate 324 MG TAB PO SCH (08:55)
[2022-03-13] MEDS: Lisinopril 20 MG TAB PO SCH (08:56)
[2022-03-13] MEDS: Empagliflozin 10 MG TAB PO SCH (08:56)
[2022-03-13] MEDS: Carvedilol 3.125 MG TAB PO SCH ×2 (08:56→16:28)
[2022-03-13] MEDS: Famotidine 20 MG TAB PO SCH (08:56)
[2022-03-13] MEDS: Rifampin 300 MG CAP PO SCH ×2 (09:36→21:46)
[2022-03-13] MEDS: DAPTOmycin 800 MG in Sodium Chloride 0.9% 50 ML IVPB SCH (16:02)
[2022-03-14 05:26] LABS: #Basophils 0.1 10x3/uL (0.0-0.2); #Eosinphils 0.4 10x3/uL (0.0-0.5); #Monocytes 0.8 10x3/uL (0.0-1.1); #Neutrophils 7.8 10x3/uL (1.5-8.4); %Basophils 1.3 % (0.0-2.0); %Eosinophils 3.8 % (0.0-6.0); %Lymphocytes 7.5 % (18.0-47.0); %Monocytes 7.7 % (0.0-10.0); %Neutrophils 79.4 % (40.0-75.0); Hemoglobin 8.3 g/dL (13.5-17.5); Mean Corpuscular HGB CONC 33.1 g/dL (32.0-36.0); Mean Corpuscular Hemoglobin 25.8 pg (27.0-33.0); Mean Platelet Volume 10.1 fl (7.4-10.4); Platelet Count 417 10x3/uL (150-450); RBC Distribution Width 17.4 % (11.5-14.5); Red Blood Cell (RBC) Count 3.22 10x6/uL (4.32-5.72); White Blood Cell (WBC) Count 9.8 10x3/uL (3.5-10.5)
[2022-03-14 05:30] LABS: Anion Gap 16 mmol/L (10-20); BUN (Urea Nitrogen) 18 mg/dL (8.4-25.7); Calc. Creatinine Clearance 50 mL/min (70-130); Carbon Dioxide 25 mmol/L (23-31); Chloride 96 mmol/L (98-107); Glucose 128 mg/dL (83-110); Potassium 3.6 mmol/L (3.5-5.1); Sodium 133 mmol/L (136-145)
[2022-03-14 05:36] LABS: ALT (SGPT) 6 U/L (8-55); AST (SGOT) 14 U/L (5-34); Albumin 2.5 g/dL (3.4-4.8); Alkaline Phosphatase 179 U/L (40-110); Bilirubin, Direct 0.9 mg/dL (0.1-0.3); Bilirubin, Total 1.3 mg/dL (0.2-1.2); Protein, Total 7.2 g/dL (5.8-8.1)
[2022-03-14] MEDS: hydrALAZINE 25 MG TAB PO SCH ×3 (10:02→20:54)
[2022-03-14] MEDS: Carvedilol 3.125 MG TAB PO SCH ×2 (10:02→17:30)
[2022-03-14] MEDS: Ferrous Gluconate 324 MG TAB PO SCH (10:02)
[2022-03-14] MEDS: Rifampin 300 MG CAP PO SCH ×2 (10:02→20:54)
[2022-03-14] MEDS: Aspirin 81 mg Enteric Coated Tablet PO SCH (10:02)
[2022-03-14] MEDS: Lisinopril 20 MG TAB PO SCH (10:03)
[2022-03-14] MEDS: Empagliflozin 10 MG TAB PO SCH (10:03)
[2022-03-14] MEDS: Famotidine 20 MG TAB PO SCH (10:03)
[2022-03-14] MEDS: Clopidogrel Bisulfate 75 MG TAB PO SCH (10:06)
[2022-03-14] MEDS ORDERED: Sodium Bicarbonate 2.5 MEQ/5 ML VIAL ONE (10:22)
[2022-03-14] MEDS: DAPTOmycin 800 MG in Sodium Chloride 0.9% 50 ML IVPB SCH (15:47)
[2022-03-14] MEDS: HumaLOG 300 UNITS/3 ML VIAL SC PRN (18:19)
[2022-03-15] MEDS: Acetaminophen 325 MG TAB PO PRN ×2 (01:21→15:00)
[2022-03-15 04:21] LABS: #Basophils 0.1 10x3/uL (0.0-0.2); #Eosinphils 0.4 10x3/uL (0.0-0.5); #Monocytes 0.7 10x3/uL (0.0-1.1); #Neutrophils 5.8 10x3/uL (1.5-8.4); %Basophils 1.6 % (0.0-2.0); %Eosinophils 4.9 % (0.0-6.0); %Lymphocytes 7.9 % (18.0-47.0); %Monocytes 8.7 % (0.0-10.0); %Neutrophils 76.6 % (40.0-75.0); Hemoglobin 8.8 g/dL (13.5-17.5); Mean Corpuscular HGB CONC 32.8 g/dL (32.0-36.0); Mean Corpuscular Hemoglobin 25.8 pg (27.0-33.0); Mean Corpuscular Volume 78.6 fl (81.2-95.1); Mean Platelet Volume 9.7 fl (7.4-10.4); Platelet Count 419 10x3/uL (150-450); RBC Distribution Width 17.4 % (11.5-14.5); Red Blood Cell (RBC) Count 3.41 10x6/uL (4.32-5.72); White Blood Cell (WBC) Count 7.5 10x3/uL (3.5-10.5)
[2022-03-15 05:03] LABS: Anion Gap 18 mmol/L (10-20); BUN (Urea Nitrogen) 18 mg/dL (8.4-25.7); Calc. Creatinine Clearance 51 mL/min (70-130); Calcium 9.3 mg/dL (7.8-10.44); Carbon Dioxide 23 mmol/L (23-31); Chloride 96 mmol/L (98-107); Glucose 128 mg/dL (83-110); Potassium 3.7 mmol/L (3.5-5.1); Sodium 133 mmol/L (136-145)
[2022-03-15] MEDS: Lisinopril 20 MG TAB PO SCH (08:04)
[2022-03-15] MEDS: Clopidogrel Bisulfate 75 MG TAB PO SCH (08:04)
[2022-03-15] MEDS: Famotidine 20 MG TAB PO SCH (08:04)
[2022-03-15] MEDS: Carvedilol 3.125 MG TAB PO SCH (08:04)
[2022-03-15] MEDS: Ferrous Gluconate 324 MG TAB PO SCH (08:04)
[2022-03-15] MEDS: Aspirin 81 mg Enteric Coated Tablet PO SCH (08:04)
[2022-03-15] MEDS: Empagliflozin 10 MG TAB PO SCH (08:05)
[2022-03-15] MEDS: hydrALAZINE 25 MG TAB PO SCH ×2 (08:05→15:34)
[2022-03-15 09:05] VITALS: TEMP 97.9
[2022-03-15] MEDS: Rifampin 300 MG CAP PO SCH (10:53)
[2022-03-15 12:59] VITALS: BP 146/58
== END 2022-03-15 16:30 | disposition home or self-care (01) | DRG 853 ==
LOC: CSHERS 15:45 → OBSVTOIN 18:22 → CSHTELE 18:22
PROVIDERS: ADMIT Internal Medicine; ATTEND Internal Medicine
PROC: 3E03329 Introduction of Other Anti-infective into Peripheral Vein, Percutaneous Approach (ICD-10-PCS; 2022-02-23)
PROC: 0JB70ZZ Excision of Back Subcutaneous Tissue and Fascia, Open Approach (ICD-10-PCS; principal; 2022-02-25)
PROC: 02HV33Z Insertion of Infusion Device into Superior Vena Cava, Percutaneous Approach (ICD-10-PCS; 2022-03-01)
PROC: B548ZZA Ultrasonography of Superior Vena Cava, Guidance (ICD-10-PCS; 2022-03-01)
PROC: B24BZZ4 Ultrasonography of Heart with Aorta, Transesophageal (ICD-10-PCS; 2022-03-04)
PROC: 02HV33Z Insertion of Infusion Device into Superior Vena Cava, Percutaneous Approach (ICD-10-PCS; 2022-03-14)
PROC: B548ZZA Ultrasonography of Superior Vena Cava, Guidance (ICD-10-PCS; 2022-03-14)
DX: A41.02 Sepsis due to Methicillin resistant Staphylococcus aureus (principal); L89.324 Pressure ulcer of left buttock, stage 4; L89.154 Pressure ulcer of sacral region, stage 4; I13.0 Hypertensive heart and chronic kidney disease with heart failure and stage 1 through stage 4 chronic kidney disease, or unspecified chronic kidney disease; I42.8 Other cardiomyopathies; R64 Cachexia; I50.42 Chronic combined systolic (congestive) and diastolic (congestive) heart failure; Z20.822 Contact with and (suspected) exposure to COVID-19; E11.22 Type 2 diabetes mellitus with diabetic chronic kidney disease; F17.210 Nicotine dependence, cigarettes, uncomplicated; E78.2 Mixed hyperlipidemia; E11.65 Type 2 diabetes mellitus with hyperglycemia; Z60.2 Problems related to living alone; E11.42 Type 2 diabetes mellitus with diabetic polyneuropathy; L89.312 Pressure ulcer of right buttock, stage 2; N30.90 Cystitis, unspecified without hematuria; N28.1 Cyst of kidney, acquired; I25.5 Ischemic cardiomyopathy; D53.9 Nutritional anemia, unspecified; E11.51 Type 2 diabetes mellitus with diabetic peripheral angiopathy without gangrene; F32.A Depression, unspecified; N18.30 Chronic kidney disease, stage 3 unspecified; Z85.46 Personal history of malignant neoplasm of prostate; Z79.899 Other long term (current) drug therapy; Z79.02 Long term (current) use of antithrombotics/antiplatelets; Z90.79 Acquired absence of other genital organ(s); Z83.3 Family history of diabetes mellitus; Z89.422 Acquired absence of other left toe(s); Z68.21 Body mass index [BMI] 21.0-21.9, adult; Z79.84 Long term (current) use of oral hypoglycemic drugs; Z71.6 Tobacco abuse counseling
CPT/HCPCS: 36415; 36416; 36569; 36571; 51701; 71045; 76770; 80048; 80053; 80076; 80202; 81003; 81015; 82274; 82550; 82805; 82977; 83036; 83605; 83735; 84100; 84145; 84443; 85025; 85610; 85730; 86850; 86900; 86901; 87040; 87077; 87086; 87149; 87186; 93005; 93010; 93306; 93312; 96374; C1751; G0378; J0696; J0878; J0885; J1650; J1815; J2270; J2704; J3370; J3490; J7050; J7120; Q5105; U0002; U0003; U0005

== ENCOUNTER 2022-05-12 20:13 | Inpatient (IN) | payer MEDICARE ==
[2022-05-12 21:14] LABS: #Basophils 0.1 10x3/uL (0.0-0.2); #Eosinphils 0.2 10x3/uL (0.0-0.5); #Monocytes 0.6 10x3/uL (0.0-1.1); #Neutrophils 6.5 10x3/uL (1.5-8.4); %Basophils 0.6 % (0.0-2.0); %Lymphocytes 9.6 % (18.0-47.0); %Monocytes 7.3 % (0.0-10.0); %Neutrophils 80.1 % (40.0-75.0); Hemoglobin 7.1 g/dL (13.5-17.5); Mean Corpuscular HGB CONC 31.7 g/dL (32.0-36.0); Mean Corpuscular Hemoglobin 26.5 pg (27.0-33.0); Mean Corpuscular Volume 83.6 fl (81.2-95.1); Mean Platelet Volume 9.1 fl (7.4-10.4); Platelet Count 337 10x3/uL (150-450); Red Blood Cell (RBC) Count 2.68 10x6/uL (4.32-5.72); White Blood Cell (WBC) Count 8.1 10x3/uL (3.5-10.5)
[2022-05-12 21:26] LABS: ALT (SGPT) 11 U/L (8-55); AST (SGOT) 15 U/L (5-34); Albumin 2.9 g/dL (3.4-4.8); Alkaline Phosphatase 134 U/L (40-110); Anion Gap 17 mmol/L (10-20); BUN (Urea Nitrogen) 24 mg/dL (8.4-25.7); Bilirubin, Total 0.2 mg/dL (0.2-1.2); Calc. Creatinine Clearance 0 mL/min (70-130); Calcium 7.3 mg/dL (7.8-10.44); Carbon Dioxide 21 mmol/L (23-31); Chloride 100 mmol/L (98-107); Estimated GFR 46; Glucose 232 mg/dL (83-110); Potassium 4.7 mmol/L (3.5-5.1); Protein, Total 6.9 g/dL (5.8-8.1); Sodium 133 mmol/L (136-145)
[2022-05-12] MEDS ORDERED: Cefepime 2 GM VIAL ONE (21:48)
[2022-05-12 22:49] LABS: SARS-CoV-2 NAA Rapid Test DETECTED (NotDetected)
[2022-05-12] MEDS ORDERED: Ondansetron ODT 4 MG TAB PO PRN (22:58)
[2022-05-12] MEDS ORDERED: Ondansetron PF 4 MG/2 ML Vial IVP PRN (22:58)
[2022-05-12] MEDS ORDERED: Calcium Carbonate 500 MG ChewTAB PO PRN (22:58)
[2022-05-12] MEDS ORDERED: Senokot S 8.6-50 MG TAB PO PRN (22:58)
[2022-05-12 23:29] LABS: Magnesium 2.2 mg/dL (1.6-2.6)
[2022-05-12 23:30] VITALS: BMI 18.0
[2022-05-12 23:49] LABS: Ferritin 356.32 ng/mL (22-322)
[2022-05-12] MEDS: Sodium Chloride 0.9% 1,000 ML IV SCH (23:56)
[2022-05-13] MEDS ORDERED: VANCOMYCIN IVPB SCH (00:30)
[2022-05-13] MEDS ORDERED: SODIUM CHLORIDE IVPB SCH (00:30)
[2022-05-13] MEDS ORDERED: ADMIXTURE FEE IVPB SCH (00:30)
[2022-05-13] MEDS: Vancomycin HCl 1 GM in Sodium Chloride 0.9% 250 ML 250 ML IVPB SCH (00:30)
[2022-05-13 01:01] LABS: Bilirubin Neg (Negative); Blood, Urine 250 (Negative); Clarity Cloudy (Clear); Glucose, Urine (Dipstick) >=1000 mg/dL (Negative); Ketone, Urine Negative (Negative); Leukocyte 500 (Negative); Nitrite Negative (Negative); Protein, Urine (Dipstick) 100 mg/dl (Neg-Trace); Urobilinogen Normal mg/dL (Less than 2)
[2022-05-13 01:12] LABS: Urine Culture Reflex No No
[2022-05-13 01:15] LABS: RBC/HPF Greater than 50 HPF (0-3)
[2022-05-13 01:16] LABS: Bacteria/HPF 4+ HPF (None Seen); Squamous Epithelial None Seen HPF (0-3); WBC/HPF Greater than 50 HPF (0-3)
[2022-05-13 04:44] LABS: #Basophils 0.1 10x3/uL (0.0-0.2); #Eosinphils 0.2 10x3/uL (0.0-0.5); #Monocytes 0.5 10x3/uL (0.0-1.1); #Neutrophils 5.9 10x3/uL (1.5-8.4); %Basophils 0.7 % (0.0-2.0); %Eosinophils 2.3 % (0.0-6.0); %Lymphocytes 9.2 % (18.0-47.0); %Monocytes 7.4 % (0.0-10.0); Hemoglobin 6.7 g/dL (13.5-17.5); Mean Corpuscular HGB CONC 32.8 g/dL (32.0-36.0); Mean Corpuscular Hemoglobin 26.9 pg (27.0-33.0); Mean Corpuscular Volume 81.9 fl (81.2-95.1); Mean Platelet Volume 9.4 fl (7.4-10.4); Platelet Count 303 10x3/uL (150-450); Red Blood Cell (RBC) Count 2.49 10x6/uL (4.32-5.72); White Blood Cell (WBC) Count 7.3 10x3/uL (3.5-10.5)
[2022-05-13 04:53] LABS: Anion Gap 11 mmol/L (10-20); BUN (Urea Nitrogen) 21 mg/dL (8.4-25.7); Calc. Creatinine Clearance 42 mL/min (70-130); Calcium 8.5 mg/dL (7.8-10.44); Carbon Dioxide 26 mmol/L (23-31); Chloride 103 mmol/L (98-107); Estimated GFR 55; Glucose 161 mg/dL (83-110); Potassium 4.3 mmol/L (3.5-5.1); Sodium 136 mmol/L (136-145)
[2022-05-13] MEDS ORDERED: Empagliflozin 10 MG TAB PO SCH (09:00)
[2022-05-13] MEDS ORDERED: Enoxaparin Sodium 40 MG/0.4 ML SYRINGE SC SCH (09:00)
[2022-05-13] MEDS: Clopidogrel Bisulfate 75 MG TAB PO SCH (09:16)
[2022-05-13] MEDS: hydrALAZINE 25 MG TAB PO SCH ×3 (09:16→21:29)
[2022-05-13] MEDS: Acetaminophen 325 MG TAB PO PRN (09:17)
[2022-05-13] MEDS: Carvedilol 3.125 MG TAB PO SCH ×2 (09:17→16:16)
[2022-05-13] MEDS: Multivit, Therapeutic 1 TAB PO SCH (09:17)
[2022-05-13] MEDS: Aspirin 81 mg Enteric Coated Tablet PO SCH (09:17)
[2022-05-13] MEDS: Ferrous Gluconate 324 MG TAB PO SCH (09:18)
[2022-05-13] MEDS: Miconazole 2% Cream 30 GM TUBE TOP SCH ×2 (09:18→21:30)
[2022-05-13] MEDS: Losartan Potassium 50 MG TAB PO SCH (09:19)
[2022-05-13] MEDS: cefTRIAXone\\ROCEPHIN 1 GM in Sodium Chloride 0.9% 100 ML IVPB SCH (09:22)
[2022-05-13] MEDS ORDERED: Dextrose 5% in Water 1,000 ML IV PRN (15:01)
[2022-05-13] MEDS ORDERED: Dextrose 50% Abboject 50 ML SYRINGE SLOW IVP PRN (15:01)
[2022-05-13] MEDS: Sodium Chloride 0.9% 1,000 ML IV SCH (16:10)
[2022-05-13 18:58] LABS: Hemoglobin 7.7 g/dL (13.5-17.5)
[2022-05-13] MEDS: Atorvastatin Calcium 40 MG TAB PO SCH (21:29)
[2022-05-14] MEDS: Vancomycin HCl 1 GM in Sodium Chloride 0.9% 250 ML 250 ML IVPB SCH ×2 (01:00→23:51)
[2022-05-14] MEDS: Sodium Chloride 0.9% 1,000 ML IV SCH ×2 (01:00→14:53)
[2022-05-14 05:08] LABS: Hemoglobin 7.9 g/dL (13.5-17.5); Mean Corpuscular HGB CONC 33.1 g/dL (32.0-36.0); Mean Corpuscular Hemoglobin 26.4 pg (27.0-33.0); Mean Corpuscular Volume 79.9 fl (81.2-95.1); Mean Platelet Volume 9.5 fl (7.4-10.4); Platelet Count 289 10x3/uL (150-450); RBC Distribution Width 18.9 % (11.5-14.5); Red Blood Cell (RBC) Count 2.99 10x6/uL (4.32-5.72); White Blood Cell (WBC) Count 8.7 10x3/uL (3.5-10.5)
[2022-05-14 05:12] LABS: Anion Gap 14 mmol/L (10-20); BUN (Urea Nitrogen) 21 mg/dL (8.4-25.7); Calc. Creatinine Clearance 44 mL/min (70-130); Calcium 8.5 mg/dL (7.8-10.44); Carbon Dioxide 23 mmol/L (23-31); Chloride 103 mmol/L (98-107); Estimated GFR 58; Glucose 115 mg/dL (83-110); Potassium 4.5 mmol/L (3.5-5.1); Sodium 135 mmol/L (136-145)
[2022-05-14] MEDS ORDERED: Bisacodyl 10 MG SUPP PR SCH (08:00)
[2022-05-14] MEDS: Carvedilol 3.125 MG TAB PO SCH ×2 (08:53→18:37)
[2022-05-14] MEDS: Aspirin 81 mg Enteric Coated Tablet PO SCH (08:53)
[2022-05-14] MEDS: Clopidogrel Bisulfate 75 MG TAB PO SCH (08:53)
[2022-05-14] MEDS: Losartan Potassium 50 MG TAB PO SCH (08:54)
[2022-05-14] MEDS: Ferrous Gluconate 324 MG TAB PO SCH (08:54)
[2022-05-14] MEDS: cefTRIAXone\\ROCEPHIN 1 GM in Sodium Chloride 0.9% 100 ML IVPB SCH (08:54)
[2022-05-14] MEDS: Multivit, Therapeutic 1 TAB PO SCH (08:55)
[2022-05-14] MEDS: hydrALAZINE 25 MG TAB PO SCH ×3 (08:55→20:10)
[2022-05-14] MEDS: Miconazole 2% Cream 30 GM TUBE TOP SCH ×2 (08:55→20:11)
[2022-05-14] MEDS ORDERED: Polyethylene Glycol 3350 17 GM Packet PO PRN (10:43)
[2022-05-14] MEDS ORDERED: Docusate 100 MG CAP PO PRN (10:43)
[2022-05-14] MEDS: Atorvastatin Calcium 40 MG TAB PO SCH (20:10)
[2022-05-14] MEDS: Acetaminophen 325 MG TAB PO PRN (22:10)
[2022-05-15] MEDS: hydrALAZINE 25 MG TAB PO SCH ×4 (03:43→21:39)
[2022-05-15] MEDS: Sodium Chloride 0.9% 1,000 ML IV SCH ×2 (04:30→17:20)
[2022-05-15] MEDS: Miconazole 2% Cream 30 GM TUBE TOP SCH ×2 (10:00→21:41)
[2022-05-15] MEDS: Multivit, Therapeutic 1 TAB PO SCH ×2 (10:00→11:42)
[2022-05-15] MEDS: Losartan Potassium 50 MG TAB PO SCH (10:00)
[2022-05-15] MEDS: Carvedilol 3.125 MG TAB PO SCH ×2 (10:01→17:22)
[2022-05-15] MEDS: Ferrous Gluconate 324 MG TAB PO SCH (10:01)
[2022-05-15] MEDS: Aspirin 81 mg Enteric Coated Tablet PO SCH (10:01)
[2022-05-15] MEDS: Clopidogrel Bisulfate 75 MG TAB PO SCH (10:07)
[2022-05-15] MEDS: HumaLOG 300 UNITS/3 ML VIAL SC PRN (17:23)
[2022-05-15] MEDS: Atorvastatin Calcium 40 MG TAB PO SCH (21:38)
[2022-05-16] MEDS: Vancomycin HCl 1 GM in Sodium Chloride 0.9% 250 ML 250 ML IVPB SCH (00:24)
[2022-05-16 04:10] LABS: Mean Corpuscular HGB CONC 31.7 g/dL (32.0-36.0); Mean Corpuscular Hemoglobin 26.6 pg (27.0-33.0); Mean Platelet Volume 9.1 fl (7.4-10.4); Platelet Count 265 10x3/uL (150-450); Red Blood Cell (RBC) Count 2.63 10x6/uL (4.32-5.72); White Blood Cell (WBC) Count 6.3 10x3/uL (3.5-10.5)
[2022-05-16 04:12] LABS: Anion Gap 12 mmol/L (10-20); BUN (Urea Nitrogen) 17 mg/dL (8.4-25.7); Calc. Creatinine Clearance 46 mL/min (70-130); Calcium 8.3 mg/dL (7.8-10.44); Carbon Dioxide 24 mmol/L (23-31); Chloride 103 mmol/L (98-107); Estimated GFR 61; Glucose 131 mg/dL (83-110); Potassium 4.6 mmol/L (3.5-5.1); Sodium 134 mmol/L (136-145)
[2022-05-16] MEDS: Carvedilol 3.125 MG TAB PO SCH ×2 (09:08→18:48)
[2022-05-16] MEDS: Ferrous Gluconate 324 MG TAB PO SCH (09:10)
[2022-05-16] MEDS: Aspirin 81 mg Enteric Coated Tablet PO SCH (09:10)
[2022-05-16] MEDS: Miconazole 2% Cream 30 GM TUBE TOP SCH ×2 (09:11→22:02)
[2022-05-16] MEDS: Multivit, Therapeutic 1 TAB PO SCH (09:11)
[2022-05-16] MEDS: Clopidogrel Bisulfate 75 MG TAB PO SCH (09:11)
[2022-05-16] MEDS: hydrALAZINE 25 MG TAB PO SCH ×3 (09:11→22:01)
[2022-05-16] MEDS ORDERED: Lidocaine 1% PF 5 ML VIAL ONE ×2 (09:22→13:37)
[2022-05-16] MEDS: Losartan Potassium 50 MG TAB PO SCH (09:24)
[2022-05-16] MEDS: Sodium Chloride 0.9% 1,000 ML IV SCH (10:42)
[2022-05-16] MEDS ORDERED: Sodium Bicarbonate 2.5 MEQ/5 ML VIAL ONE (13:37)
[2022-05-16] MEDS: Atorvastatin Calcium 40 MG TAB PO SCH (22:02)
[2022-05-17] MEDS: Vancomycin HCl 1 GM in Sodium Chloride 0.9% 250 ML 250 ML IVPB SCH ×3 (01:07→23:17)
[2022-05-17 04:57] LABS: Hemoglobin 7.4 g/dL (13.5-17.5); Mean Corpuscular HGB CONC 31.5 g/dL (32.0-36.0); Mean Corpuscular Hemoglobin 26.3 pg (27.0-33.0); Mean Corpuscular Volume 83.6 fl (81.2-95.1); Mean Platelet Volume 9.6 fl (7.4-10.4); Platelet Count 297 10x3/uL (150-450); RBC Distribution Width 18.8 % (11.5-14.5); Red Blood Cell (RBC) Count 2.81 10x6/uL (4.32-5.72); White Blood Cell (WBC) Count 6.3 10x3/uL (3.5-10.5)
[2022-05-17] MEDS: Losartan Potassium 50 MG TAB PO SCH (09:58)
[2022-05-17] MEDS: hydrALAZINE 25 MG TAB PO SCH ×3 (09:58→23:17)
[2022-05-17] MEDS: Clopidogrel Bisulfate 75 MG TAB PO SCH (09:59)
[2022-05-17] MEDS: Carvedilol 3.125 MG TAB PO SCH ×2 (10:00→17:50)
[2022-05-17] MEDS: Multivit, Therapeutic 1 TAB PO SCH (10:01)
[2022-05-17] MEDS: Aspirin 81 mg Enteric Coated Tablet PO SCH (10:01)
[2022-05-17] MEDS: Miconazole 2% Cream 30 GM TUBE TOP SCH ×2 (10:01→23:55)
[2022-05-17] MEDS: Ferrous Gluconate 324 MG TAB PO SCH (10:01)
[2022-05-17] MEDS: HumaLOG 300 UNITS/3 ML VIAL SC PRN (12:41)
[2022-05-17] MEDS: Atorvastatin Calcium 40 MG TAB PO SCH (23:16)
[2022-05-18] MEDS: Aspirin 81 mg Enteric Coated Tablet PO SCH (10:05)
[2022-05-18] MEDS: hydrALAZINE 25 MG TAB PO SCH ×2 (10:05→15:42)
[2022-05-18] MEDS: Losartan Potassium 50 MG TAB PO SCH (10:05)
[2022-05-18] MEDS: Multivit, Therapeutic 1 TAB PO SCH (10:06)
[2022-05-18] MEDS: Ferrous Gluconate 324 MG TAB PO SCH (10:06)
[2022-05-18] MEDS: Carvedilol 3.125 MG TAB PO SCH ×2 (10:06→18:57)
[2022-05-18] MEDS: Clopidogrel Bisulfate 75 MG TAB PO SCH (10:12)
[2022-05-18] MEDS: Miconazole 2% Cream 30 GM TUBE TOP SCH (10:12)
[2022-05-18] MEDS: HumaLOG 300 UNITS/3 ML VIAL SC PRN (13:34)
[2022-05-18] MEDS: Acetaminophen 325 MG TAB PO PRN (13:34)
[2022-05-18] MEDS ORDERED: DAPTOmycin 500 MG in Sodium Chloride 0.9% 100 ML IVPB SCH (14:15)
[2022-05-18 16:27] VITALS: BP 122/54; TEMP 97.2
[2022-05-19] MEDS ORDERED: Empagliflozin 10 MG TAB PO SCH (09:00)
== END 2022-05-18 18:59 | disposition home health service (06) | DRG 637 ==
LOC: CSHERS 20:13 → CSHTELE 23:26
PROVIDERS: ADMIT Family Medicine; ATTEND Internal Medicine
PROC: 8E0ZXY6 Isolation (ICD-10-PCS; 2022-05-12)
PROC: 30233N1 Transfusion of Nonautologous Red Blood Cells into Peripheral Vein, Percutaneous Approach (ICD-10-PCS; 2022-05-13)
PROC: 02HV33Z Insertion of Infusion Device into Superior Vena Cava, Percutaneous Approach (ICD-10-PCS; principal; 2022-05-16)
PROC: B5181ZA Fluoroscopy of Superior Vena Cava using Low Osmolar Contrast, Guidance (ICD-10-PCS; 2022-05-16)
PROC: B548ZZA Ultrasonography of Superior Vena Cava, Guidance (ICD-10-PCS; 2022-05-16)
DX: E11.69 Type 2 diabetes mellitus with other specified complication (principal); L89.153 Pressure ulcer of sacral region, stage 3; U07.1 COVID-19; M46.24 Osteomyelitis of vertebra, thoracic region; I50.22 Chronic systolic (congestive) heart failure; I13.0 Hypertensive heart and chronic kidney disease with heart failure and stage 1 through stage 4 chronic kidney disease, or unspecified chronic kidney disease; N17.9 Acute kidney failure, unspecified; E78.5 Hyperlipidemia, unspecified; E11.51 Type 2 diabetes mellitus with diabetic peripheral angiopathy without gangrene; E11.22 Type 2 diabetes mellitus with diabetic chronic kidney disease; N18.31 Chronic kidney disease, stage 3a; E87.5 Hyperkalemia; L89.152 Pressure ulcer of sacral region, stage 2; D63.8 Anemia in other chronic diseases classified elsewhere; E11.40 Type 2 diabetes mellitus with diabetic neuropathy, unspecified; I25.5 Ischemic cardiomyopathy; N13.9 Obstructive and reflux uropathy, unspecified; K62.89 Other specified diseases of anus and rectum; M46.44 Discitis, unspecified, thoracic region; Z85.46 Personal history of malignant neoplasm of prostate; Z79.82 Long term (current) use of aspirin; Z98.890 Other specified postprocedural states; Z79.899 Other long term (current) drug therapy
CPT/HCPCS: 36415; 36416; 36430; 36569; 71045; 74176; 80048; 80053; 80202; 81001; 82550; 82607; 82728; 83605; 83735; 85025; 85027; 86850; 86900; 86901; 87040; 87077; 87086; 87149; 87186; 93306; 96374; 96375; 97139; C1751; J0692; J0696; J0878; J1650; J1815; J3370; J3490; J7050; P9016; U0002

== ENCOUNTER 2022-05-21 11:38 | Observation (INO) | payer MEDICARE ==
[2022-05-21] MEDS ORDERED: DAPTOmycin 500 MG in Sodium Chloride 0.9% 100 ML IVPB SCH (12:45)
[2022-05-21 13:06] LABS: #Basophils 0.1 10x3/uL (0.0-0.2); #Eosinphils 0.3 10x3/uL (0.0-0.5); #Monocytes 0.4 10x3/uL (0.0-1.1); #Neutrophils 5.2 10x3/uL (1.5-8.4); %Basophils 0.8 % (0.0-2.0); %Lymphocytes 10.3 % (18.0-47.0); %Monocytes 5.7 % (0.0-10.0); %Neutrophils 78.9 % (40.0-75.0); Hemoglobin 7.6 g/dL (13.5-17.5); Mean Corpuscular HGB CONC 31.4 g/dL (32.0-36.0); Mean Corpuscular Hemoglobin 26.4 pg (27.0-33.0); Mean Platelet Volume 9.5 fl (7.4-10.4); Platelet Count 329 10x3/uL (150-450); RBC Distribution Width 19.5 % (11.5-14.5); Red Blood Cell (RBC) Count 2.88 10x6/uL (4.32-5.72); White Blood Cell (WBC) Count 6.5 10x3/uL (3.5-10.5)
[2022-05-21 13:16] LABS: ALT (SGPT) 11 U/L (8-55); AST (SGOT) 13 U/L (5-34); Albumin 2.8 g/dL (3.4-4.8); Alkaline Phosphatase 153 U/L (40-110); Anion Gap 11 mmol/L (10-20); BUN (Urea Nitrogen) 14 mg/dL (8.4-25.7); Bilirubin, Total 0.3 mg/dL (0.2-1.2); Calc. Creatinine Clearance 0 mL/min (70-130); Calcium 8.9 mg/dL (7.8-10.44); Carbon Dioxide 25 mmol/L (23-31); Chloride 104 mmol/L (98-107); Estimated GFR 74; Globulin 4.6 g/dL (2.4-3.5); Glucose 172 mg/dL (83-110); Potassium 3.8 mmol/L (3.5-5.1); Protein, Total 7.4 g/dL (5.8-8.1); Sodium 136 mmol/L (136-145)
[2022-05-21] MEDS ORDERED: Acetaminophen 325 MG TAB PO PRN (18:32)
[2022-05-21] MEDS ORDERED: Dextrose 50% Abboject 50 ML SYRINGE SLOW IVP PRN (19:13)
[2022-05-21] MEDS ORDERED: Dextrose 5% in Water 1,000 ML IV PRN (19:13)
[2022-05-21] MEDS ORDERED: Senokot S 8.6-50 MG TAB PO PRN (19:13)
[2022-05-21] MEDS ORDERED: Ondansetron PF 4 MG/2 ML Vial IVP PRN (19:13)
[2022-05-21] MEDS ORDERED: HumaLOG 300 UNITS/3 ML VIAL SC PRN (19:13)
[2022-05-21] MEDS ORDERED: Calcium Carbonate 500 MG ChewTAB PO PRN (19:13)
[2022-05-21] MEDS ORDERED: HYDROcodone/Acetaminophen 5/325 mg Tablet PO PRN (19:13)
[2022-05-21] MEDS ORDERED: Famotidine 20 MG TAB PO SCH (21:00)
[2022-05-21] MEDS ORDERED: Atorvastatin Calcium 40 MG TAB PO SCH (21:00)
[2022-05-22 01:14] VITALS: BMI 14.9
[2022-05-22] MEDS: hydrALAZINE 25 MG TAB PO SCH ×2 (01:52→11:27)
[2022-05-22] MEDS: Miconazole 2% Cream 30 GM TUBE TOP SCH ×2 (01:55→11:28)
[2022-05-22] MEDS ORDERED: Carvedilol 3.125 MG TAB PO SCH (08:00)
[2022-05-22] MEDS ORDERED: Ferrous Gluconate 324 MG TAB PO SCH (08:00)
[2022-05-22] MEDS ORDERED: Saccharomyces boulardii 250 MG CAP PO SCH (09:00)
[2022-05-22] MEDS ORDERED: Clopidogrel Bisulfate 75 MG TAB PO SCH (09:00)
[2022-05-22] MEDS ORDERED: Aspirin 81 mg Enteric Coated Tablet PO SCH (09:00)
[2022-05-22] MEDS ORDERED: Empagliflozin 10 MG TAB PO SCH (09:00)
[2022-05-22] MEDS ORDERED: Multivit, Therapeutic 1 TAB PO SCH (09:00)
[2022-05-22] MEDS ORDERED: Enoxaparin Sodium 40 MG/0.4 ML SYRINGE SC SCH (09:00)
[2022-05-22] MEDS ORDERED: Losartan Potassium 50 MG TAB PO SCH (09:00)
[2022-05-22] MEDS ORDERED: DAPTOmycin 500 MG in Sodium Chloride 0.9% 100 ML IVPB SCH (10:00)
[2022-05-22 11:51] VITALS: BP 181/83; TEMP 97.7
[2022-05-22] MEDS ORDERED: Famotidine 20 MG TAB PO SCH (21:00)
== END 2022-05-22 14:35 | disposition home or self-care (01) ==
LOC: CSHERS 11:38 → CSHTELE 18:08 → UNDOADMOB 05-22 00:40
PROVIDERS: ADMIT Internal Medicine; ATTEND Internal Medicine
DX: M46.44 Discitis, unspecified, thoracic region (principal); M46.24 Osteomyelitis of vertebra, thoracic region; R78.81 Bacteremia; B95.62 Methicillin resistant Staphylococcus aureus infection as the cause of diseases classified elsewhere; R53.81 Other malaise; D63.8 Anemia in other chronic diseases classified elsewhere; I13.0 Hypertensive heart and chronic kidney disease with heart failure and stage 1 through stage 4 chronic kidney disease, or unspecified chronic kidney disease; E11.22 Type 2 diabetes mellitus with diabetic chronic kidney disease; N18.2 Chronic kidney disease, stage 2 (mild); I50.22 Chronic systolic (congestive) heart failure; E11.65 Type 2 diabetes mellitus with hyperglycemia; E78.2 Mixed hyperlipidemia; I42.8 Other cardiomyopathies; L89.152 Pressure ulcer of sacral region, stage 2; E11.51 Type 2 diabetes mellitus with diabetic peripheral angiopathy without gangrene; Z85.46 Personal history of malignant neoplasm of prostate; Z87.891 Personal history of nicotine dependence; Z60.9 Problem related to social environment, unspecified; Z79.02 Long term (current) use of antithrombotics/antiplatelets; Z79.2 Long term (current) use of antibiotics; Z79.82 Long term (current) use of aspirin; Z79.84 Long term (current) use of oral hypoglycemic drugs; Z79.899 Other long term (current) drug therapy
CPT/HCPCS: 80053; 82962; 85025; 96372; 96374; 96376; 99284; G0378 ×2; J0878 ×2; 36415; 36416; J1650; J3490

== ENCOUNTER 2022-10-16 10:21 | Emergency (ER) | payer MEDICARE ==
[2022-10-16] MEDS ORDERED: hydrALAZINE 25 MG TAB ONE (11:07)
[2022-10-16] MEDS ORDERED: Losartan Potassium 50 MG TAB ONE (11:08)
[2022-10-16] MEDS ORDERED: Carvedilol 3.125 MG TAB ONE (11:08)
[2022-10-16 11:57] LABS: #Eosinphils 0.3 10x3/uL (0.0-0.5); #Monocytes 0.3 10x3/uL (0.0-1.1); #Neutrophils 4.9 10x3/uL (1.5-8.4); %Basophils 0.7 % (0.0-2.0); %Eosinophils 4.7 % (0.0-6.0); %Lymphocytes 10.7 % (18.0-47.0); %Monocytes 4.2 % (0.0-10.0); %Neutrophils 79.4 % (40.0-75.0); Hemoglobin 10.4 g/dL (13.5-17.5); Mean Corpuscular HGB CONC 32.7 g/dL (32.0-36.0); Mean Corpuscular Hemoglobin 27.7 pg (27.0-33.0); Mean Corpuscular Volume 84.6 fl (81.2-95.1); Mean Platelet Volume 10.6 fl (7.4-10.4); Platelet Count 265 10x3/uL (150-450); RBC Distribution Width 17.2 % (11.5-14.5); Red Blood Cell (RBC) Count 3.76 10x6/uL (4.32-5.72); White Blood Cell (WBC) Count 6.1 10x3/uL (3.5-10.5)
[2022-10-16 12:03] LABS: ALT (SGPT) 9 U/L (8-55); AST (SGOT) 12 U/L (5-34); Albumin 3.8 g/dL (3.4-4.8); Alkaline Phosphatase 129 U/L (40-110); Anion Gap 11 mmol/L (10-20); BUN (Urea Nitrogen) 15 mg/dL (8.4-25.7); Bilirubin, Total 0.9 mg/dL (0.2-1.2); Calc. Creatinine Clearance 0 mL/min (70-130); Calcium 9.2 mg/dL (7.8-10.44); Carbon Dioxide 30 mmol/L (23-31); Chloride 99 mmol/L (98-107); Estimated GFR 35; Globulin 4.5 g/dL (2.4-3.5); Glucose 128 mg/dL (83-110); Potassium 3.3 mmol/L (3.5-5.1); Protein, Total 8.3 g/dL (5.8-8.1); Sodium 137 mmol/L (136-145)
[2022-10-16 12:15] LABS: Bilirubin Neg (Negative); Blood, Urine 250 (Negative); Clarity Cloudy (Clear); Glucose, Urine (Dipstick) Normal (Negative); Ketone, Urine Negative (Negative); Leukocyte 100 (Negative); Nitrite Negative (Negative); Protein, Urine (Dipstick) 100 mg/dl (Neg-Trace); Specific Gravity, Urine 1.005 (1.005-1.030); Urobilinogen Normal mg/dL (Less than 2)
[2022-10-16 12:18] LABS: Bacteria/HPF None Seen HPF (None Seen); RBC/HPF Greater than 50 HPF (0-3); Squamous Epithelial 0-3 HPF (0-3)
== END 2022-10-16 13:08 | disposition home or self-care (01) ==
LOC: CSHERS 10:21
DX: T83.511A Infection and inflammatory reaction due to indwelling urethral catheter, initial encounter (principal); N39.0 Urinary tract infection, site not specified; E11.9 Type 2 diabetes mellitus without complications; E78.5 Hyperlipidemia, unspecified
CPT/HCPCS: 51702; 80053; 81003; 81015; 85025; 87077; 87086; 87186

== ENCOUNTER 2022-12-21 11:31 | Emergency (ER) | payer MEDICARE, OTHER ==
[2022-12-21 11:54] LABS: Bilirubin Neg (Negative); Blood, Urine 250 (Negative); Glucose, Urine (Dipstick) Normal (Negative); Ketone, Urine Negative (Negative); Leukocyte 500 (Negative); Nitrite Negative (Negative); Protein, Urine (Dipstick) 500 mg/dl (Neg-Trace); Specific Gravity, Urine 1.015 (1.005-1.030); pH, Urine 6.5 (5.0-9.0)
[2022-12-21 12:14] LABS: Clarity Turbid (Clear)
[2022-12-21 12:17] LABS: WBC/HPF Greater Than 50 HPF (0-3)
[2022-12-21 12:18] LABS: Bacteria/HPF 4+ HPF (None Seen)
[2022-12-21 12:18] LABS: #Eosinphils 0.1 10x3/uL (0.0-0.5); #Monocytes 0.3 10x3/uL (0.0-1.1); #Neutrophils 3.1 10x3/uL (1.5-8.4); %Basophils 0.9 % (0.0-2.0); %Eosinophils 3.1 % (0.0-6.0); %Lymphocytes 14.9 % (18.0-47.0); %Monocytes 7.1 % (0.0-10.0); %Neutrophils 73.8 % (40.0-75.0); Hemoglobin 9.4 g/dL (13.5-17.5); Mean Corpuscular HGB CONC 32.6 g/dL (32.0-36.0); Mean Corpuscular Hemoglobin 28.7 pg (27.0-33.0); Mean Corpuscular Volume 88.1 fl (81.2-95.1); Mean Platelet Volume 11.7 fl (7.4-10.4); Platelet Count 176 10x3/uL (150-450); RBC Distribution Width 15.8 % (11.5-14.5); Red Blood Cell (RBC) Count 3.27 10x6/uL (4.32-5.72); White Blood Cell (WBC) Count 4.2 10x3/uL (3.5-10.5)
[2022-12-21 12:35] LABS: ALT (SGPT) 8 U/L (8-55); AST (SGOT) 11 U/L (5-34); Albumin 3.3 g/dL (3.4-4.8); Alkaline Phosphatase 119 U/L (40-110); Anion Gap 12 mmol/L (10-20); BUN (Urea Nitrogen) 10 mg/dL (8.4-25.7); Bilirubin, Total 1.4 mg/dL (0.2-1.2); Calc. Creatinine Clearance 0 mL/min (70-130); Calcium 8.5 mg/dL (7.8-10.44); Carbon Dioxide 23 mmol/L (23-31); Chloride 105 mmol/L (98-107); Estimated GFR 46; Globulin 3.4 g/dL (2.4-3.5); Glucose 148 mg/dL (83-110); Potassium 3.2 mmol/L (3.5-5.1); Protein, Total 6.7 g/dL (5.8-8.1); Sodium 137 mmol/L (136-145)
[2022-12-21] MEDS ORDERED: cefTRIAXone\\ROCEPHIN 1 GM VIAL ONE (13:42)
[2022-12-21] MEDS ORDERED: Lidocaine 1% PF 5 ML VIAL ONE (13:42)
== END 2022-12-21 15:38 | disposition home or self-care (01) ==
LOC: CSHERS 11:31
DX: N30.00 Acute cystitis without hematuria (principal); I50.9 Heart failure, unspecified; E11.9 Type 2 diabetes mellitus without complications; E78.5 Hyperlipidemia, unspecified
CPT/HCPCS: 36415; 51702; 71045; 80053; 81003; 81015; 83605; 85025; 87040; 87077; 87086; 96372; J0696